=== PATIENT | male | born 1940 | race Caucasian/White ===

== ENCOUNTER 2016-11-12 09:40 | Inpatient (IN) ==
[2016-11-12 10:03] LABS: ALLEN TEST YES; BE 0.5 mmoll (-3.0-3.0); BLOOD TYPE ARTERIAL; DRAW SITE R RADIAL; METHB 1.4 % (0.0-1.5); O2(CT) 19.8 mL/dL (15.0-23.0); PCO2(98.6) 44 mmHg (35-45); PO2(98.6) 69 mmHg (60-100); SAMPLE BLOOD; SAO2 96.4 % (95.0-100.0); THB 15.2 g/dL (11.5-17.4); pH(98.6) 7.38 (7.35-7.45)
[2016-11-12 10:04] LABS: MODALITY ROOM AIR
[2016-11-12 10:41] LABS: MANUAL DIFF NEEDED? NO
[2016-11-12 10:41] LABS: URINE CULTURE NEEDED? NO; URINE MICRO REVIEW NEEDED? NO; URINE SOURCE CLEAN CATCH
[2016-11-12 10:48] LABS: BASO% 0.6 % (0.0-0.8); EOS# 0.13 X1000 (0.0-0.7); EOS% 2.1 % (0.0-10.0); HEMATOCRIT 46.2 % (42.0-52.0); HEMOGLOBIN 15.5 g/dL (14.0-18.0); IMM GRAN# 0.04 X1000 (0.0-0.04); IMM GRAN% 0.6 % (0.0-0.5); LYMPH# 1.06 X1000 (1.2-3.4); MCH 30.6 PG (27-31); MCHC 33.5 g/dL (33-37); MCV 91.3 FL (81-99); MONO# 0.77 X1000 (0.11-0.59); MONO% 12.4 % (1.7-9.3); MPV 10.2 FL (7.4-10.4); NEUT% 67.3 % (42.2-75.2); PLT 300 X1000 (130-400); RBC 5.06 XMIL (4.7-6.1)
[2016-11-12 10:53] LABS: BILIRUBIN URINE NEGATIVE (NEGATIVE); BLOOD URINE NEGATIVE (NEGATIVE); COLOR YELLOW; GLUCOSE URINE NEGATIVE (NEGATIVE); LEUKOCYTES URINE NEGATIVE (NEGATIVE); NITRITE URINE NEGATIVE (NEGATIVE); PH URINE 5.5; PROTEIN URINE NEGATIVE (NEGATIVE); SP GRAVITY URINE 1.003; TURBIDITY URINE CLEAR (CLEAR); UROBILINOGEN URINE NORMAL (NORMAL)
[2016-11-12 10:54] LABS: INR 1.04; PROTIME 10.9 Seconds (9.2-11.7); PTT 30.2 Seconds (22.0-36.0)
[2016-11-12 10:54] LABS: UR AMPHETAMINES QUAL NONE DETECTED (NONE DETECT); UR BARBITUATES QUAL NONE DETECTED (NONE DETECT); UR BENZODIAZEPIN QUAL NONE DETECTED (NONE DETECT); UR CANNABINOIDS QUAL NONE DETECTED (NONE DETECT); UR COCAINE QUAL NONE DETECTED (NONE DETECT); UR METHADONE QUAL NONE DETECTED (NONE DETECT); UR OPIATES QUAL NONE DETECTED (NONE DETECT); UR OXYCODONE QUAL NONE DETECTED (NONE DETECT); UR PCP QUAL NONE DETECTED (NONE DETECT)
[2016-11-12 10:58] LABS: UR EPITHELIAL CELLS <10 /HPF (<10); URINE BACTERIA NEGATIVE /HPF; URINE RBC <10 /HPF (<10); URINE WBC <10 /HPF (<10)
--- NOTE | 2016-11-12 11:08 | Diag Imaging Result Document ---
PROCEDURE NAME: CHEST-PORTABLE - 11/12/2016 PORTABLE CHEST X-RAY, 11/12/2016: COMPARISON: 09/09/2015. FINDINGS: Stable sternotomy wires. Stable cardiomegaly and mild pulmonary vascular congestion. There is stable chronic left lower lobe atelectasis or infiltrate. No new or focal infiltrates. No significant edema. IMPRESSION: Nonspecific findings.
[2016-11-12 11:09] LABS: AGAP 14; ALBUMIN 4.2 g/dL (3.5-5.0); ALKALINE PHOSPHATASE 48 U/L (32-122); BUN 11 mg/dL (8-22); CALCIUM 9.3 mg/dL (8.8-10.2); CHLORIDE 95 mmol/L (98-107); CK PROFILE 68 U/L (24-204); COSMO 274; GOT 18 U/L (10-34); GPT 15 U/L (10-44); POTASSIUM 4.1 mmol/L (3.5-5.1); SODIUM 136 mmol/L (136-145); TCO2 27 mmol/L (25-35); TOTAL BILIRUBIN 0.51 mg/dL (0.20-1.00); TOTAL PROTEIN 7.1 g/dL (6.3-8.3)
--- NOTE | 2016-11-12 11:20 | Diag Imaging Result Document ---
PROCEDURE NAME: HEAD W/O CONTRAST - 11/12/[address], 11/12/2016: A CT dose reduction protocol was used. COMPARISON: 09/09/2015. FINDINGS: There are new, extensive hypodensities in the left frontal and occipital lobes. The density does not quite approach CSF density, this probably indicates infarctions of at least several days of age. No mass effect or significant atrophy yet. No intracranial hemorrhage. The skull is intact. The sinuses, mastoids, and middle ears are grossly clear. There is stable advanced cerebral white matter hypodensity compatible with chronic microvascular disease. IMPRESSION: New extensive left cerebral hemisphere hypodensities compatible with strokes. These are probably at least 3-5 days old, but probably less than a month old. [facility]
--- NOTE | 2016-11-12 11:41 | PROVIDER DOCUMENTATION ---
This chart was entered by Chasidy Gee Scribe, acting as scribe for Charlee Schneider Jr, MD. HPI-General Adult - General Stated Complaint: AMS x 4 days Time Seen by Provider: 11/12/16 09:41 Source: patient Unable to obtain history due to:: altered Allergies/Adverse Reactions: Patient Allergies Allergy/AdvReac Type Severity Reaction Status Date / Time No Known Allergies Allergy Verified 11/12/16 11:08 Home Medications: Home Medication List Medication Instructions Recorded Confirmed Last Taken Type LISINOpril [Prinivil] 2.5 mg PO DAILY 08/27/15 11/12/16 05/27/16 09:00 History Metformin E.r. [Glucophage Xr] 1,000 mg PO DAILY 08/27/15 11/12/16 05/27/16 09: 00 History Tamsulosin [Flomax] 0.4 mg PO DAILY 08/27/15 11/12/16 05/27/16 09:00 History Clopidogrel Bisulfate [Plavix] 75 mg PO DAILY 05/26/16 11/12/16 05/27/16 09:00 History Potassium 1 tab PO DAILY 11/12/16 11/12/16 Unknown History - History of Present Illness -Gen Adult Nature of Presenting Problems: 76 y/o M presents to ED per EMS cc of AMS X 4 days now. Pt is disoriented x 3. is at bedside and reports pt being confused, not talking , and incoherent since Wednesday. Pt does have a hx of dementia. also reports pt having a cough and rash/sores between thighs/groin area due to incontinence and the use of depends. reports pt smoking x 1 ppd and reports that pt use to be an alcoholic. On exam pt appears to be SOB with increased rate but reports this as normal for pt. Location of Pain/Injury: reports: none Pain Radiation: reports: no radiation Quality of Pain: reports: none Severity: reports: mild Onset/Duration: reports: 4 days ago (wednesday) Timing: reports: still present Context/Activities at Onset: reports: light activity Modifying Factors: improves with: nothing Associated Symptoms: reports: cough, rash (between thighs/ groin area), other ( AMS). denies: chest pain, fever/chills, sinus congestion/drainage, shortness of breath ( reports pt always breathes this way) Similar Symptoms Previously?: No Recently seen or treated by another doctor?: No Review of Systems - Adult - REVIEW OF SYSTEMS - ADULT ROS:: ROS per family Constitutional: denies: chills, fever Cardiovascular: denies: chest pain, palpitations Respiratory: reports: cough. denies: shortness of breath Gastrointestinal: denies: abdominal pain, diarrhea, nausea, vomiting Genitourinary: reports: incontinence. denies: discharge Musculoskeletal: denies: bone pain, back pain Integumentary: reports: rash (groin area/between thighs). denies: mole changes Neurological: denies: dizziness/vertigo, headache/migraines Past History - Adult - PAST MEDICAL HISTORY-ADULT Review of Records: reports: Old Records Reviewed, Nursing Assessment Review Cardiovascular: reports: CAD, HTN, hyperlipidemia, PA Respiratory: reports: COPD Gastrointestinal: reports: pancreatitis Genitourinary: reports: other (bladder ca, BPH) Endocrine/Immune: reports: Diabetes - PRIOR SURGERIES/PROCEDURES Surgical/Procedure History: reports: CABG, other (urinary stents) - IMMUNIZATION STATUS Childhood Immunizations: See Nurse Assessment Flu Vaccine: See Nurse Assessment - SOCIAL HISTORY Smoking: greater than 1 pack/day Provider spent 3-5 mins advising pt. on dangers of tobacco.: Discussed manners to quit use, and f/u contacts for add'l counseling. Substance Use: none presently/history of abuse Alcohol Use Frequency: sober (former use) Living Situation: family Physical Exam-General - PHYSICAL EXAM-ADULT Initial Vital Signs Reviewed: Yes - CONSTITUTIONAL General Appearance: alert, obese, other (DISORIENTED) - EYES Eyes: pink conjunctivae, other (discharge to R eye) - HEAD, EARS, NOSE, MOUTH & THROAT HENMT: moist mucous membranes, other (no teeth) - NECK Neck: non-tender, full range of motion - RESPIRATORY Respiratory: chest non-tender, no respiratory distress, wheezing (all lung jones), increased rate. negative: lungs clear - CARDIOVASCULAR Cardiovascular: normal peripheral pulses, regular rate, rhythm, no edema - GASTROINTESTINAL (ABDOMEN) Abdominal Exam: normal bowel sounds, soft - MUSCULOSKELETAL Back Exam: no CVA tenderness, no vertebral tenderness Extremity: normal range of motion, non-tender - SKIN Integumentary: warm/dry, erythema (bilat groin region), rash (bilat groin region ), other (yeast is noted to bilat groin regions/ pt does have some mild skin break down). negative: decubitus - NEUROLOGIC Neurologic: no motor/sensory deficits, other (disoriented). negative: facial droop, focal weakness - PSYCHIATRIC Psych/Mental Status: disoriented x 3, other (confused) Progress - PLAN OF CARE/RESULTS Progress/Plan/Lab Results: Orders Category Date Time Status Cardiac Monitoring DIRECTED Care 11/12/16 09:42 Active Finger Stick Blood Sugar (ED) DIRECTED Care 11/12/16 09:42 Active Oxygen Therapy- ED Nursing DIRECTED Care 11/12/16 09:42 Active Saline Loc NOW Care 11/12/16 09:42 Active CHEST-PORTABLE [RAD] Stat Exams 11/12/16 09:42 Ordered HEAD W/O CONTRAST [CT] Stat Exams 11/12/16 09:43 Ordered ABG [RESP] Routine Lab 11/12/16 09:42 Ordered ALCOHOL BLOOD Stat Lab 11/12/16 09:42 Uncollected CBC WITH ELECTRONIC DIFF [HEME] Stat Lab 11/12/16 09:42 Uncollected CK PROFILE [SP CHEM] Stat Lab 11/12/16 09:42 Uncollected COMPREHENSIVE METABOLIC PANEL [CHEM] Stat Lab 11/12/16 09:42 Uncollected LACTATE, PLASMA [CHEM] Stat Lab 11/12/16 09:42 Uncollected PROTIME WITH INR [COAG] Stat Lab 11/12/16 09:42 Uncollected PTT [COAG] Stat Lab 11/12/16 09:42 Uncollected TROPONIN T Stat Lab 11/12/16 09:42 Uncollected URINALYSIS W/POSS RFLX CULT-1 [URINALYSIS] Stat Lab 11/12/16 09:42 Uncollected URINE DRUG SCREEN Stat Lab 11/12/16 09:42 Uncollected Pulse Oximetry Stat Oth 11/12/16 09:42 Active EKG [EKG] Stat Ther 11/12/16 09:42 Ordered PLAN: LABS, URINE(WERNER) ,CHEST XRAY , HEAD CT, EKG PT IS AT BED SIDE AND VERBALLY UNDERSTANDS THE PLAN OF CARE. Result Diagrams: 11/12/16 10:08 11/12/16 10:08 - REASSESSMENT Reassessment #1 Time Reassessed: 11:03 Status: unchanged Reassessment Comment: notified of CT results. Reassessment #2 Time Reassessed: 11:30 Status: unchanged Reassessment Comment: notified of pt being admitted - EKG 1 Time of EKG reading by physician:: 11:09 EKG Read and Signed by:: Charlee Schneider Jr EKG Interpretation (*Must complete 3 of following elements*): Abnormal Rate: 60 Rhythm: NSR Chambers: normal QRS: RBB VA Interval: normal Comments: inferior infarct , possible lateral infarct - XRAY 1 XRAY: Bilateral XRAY Study: Chest Impression: Normal XRAY Interpretation: CMG, no edema - Dr. Andrews ( radiologist) - CT/MRI 1 CT Study: Head Impression: Abnormal (subacute to chronic L sided strokes (probably 1-2 weeks old) / no bleed or mass - (radiologist)) CT Results: see impression - CONSULTS/PCP/HOSPITALIST Notification #1 *Consult/PCP/Hospitalist*: (hospitalist) Time Discussed: :30 Consult Disposition: Admit Departure - Departure Time of Disposition Decision: 11:25 DIAGNOSIS: Yeast dermatitis, COPD exacerbation, Tobacco abuse CVA (cerebral vascular accident) Qualifiers: CVA mechanism: unspecified Qualified Code(s): I63.9 - Cerebral infarction, unspecified Disposition: ADMITTED INPATIENT 09 Certified Medical Emergency: Emergent Condition: Stable Referrals and Follow-Ups: Verna Painter MD [Primary Care Provider] - This chart was documented by the indicated scribe, (Chasidy Gee Scribe) and accurately reflects the services I performed and decisions made by , Charlee Schneider Jr, MD, as attested by the provider's signature.
--- NOTE | 2016-11-12 12:02 | EKG Report ---
Test Performed on : 11/12/2016 11:09:40 AM Test Reason : AMS Blood Pressure : / mmHG Vent. Rate : 060 BPM Atrial Rate : 060 BPM P-R Int : 146 ms QRS Dur : 140 ms QT Int : 466 ms P-R-T Axes : 061 021 154 degrees QTc Int : 466 ms Normal sinus rhythm. Right bundle branch block Possible Lateral infarct , age undetermined Inferior infarct (cited on or before 24-MAY-2007) Abnormal ECG When compared with ECG of 26-MAY-2016 14:27, T wave inversion less evident in Anterior leads Unconfirmed Result
[2016-11-12] MEDS ORDERED: ASPIRIN PR ONE (12:12)
[2016-11-12] MEDS ORDERED: DUONEB (A & A) INH PRN (12:12)
[2016-11-12] MEDS ORDERED: LOTRIMIN 1% CREAM TOP ONE (12:50)
[2016-11-12 13:43] LABS: HEMOGLOBIN A1C 6.3 % (4.8-6.0)
[2016-11-12 13:51] LABS: FREE T4 1.17 ng/dL (0.93-1.70)
--- NOTE | 2016-11-12 14:45 | Diag Imaging Result Document ---
PROCEDURE NAME: MRI BRAIN W/O CONTRAST - 11/12/2016 MRI BRAIN: COMPARISON: Head CT earlier, 11/12/2016. FINDINGS: There is extensive patient motion artifact. There is restricted diffusion in the lateral left frontal-temporal lobe infarction. No mass effect. Given the appearance on the CT and other MRI sequences, this is compatible with a somewhat recent infarction that is subacute, probably about 3-7-day-old. No intracranial mass effect or hemorrhage. There is advanced periventricular white matter chronic microvascular disease. There is mild diffuse atrophy. There is an older infarct at the left occipital lobe that demonstrates no restricted diffusion. IMPRESSION: 1. Subacute left frontal-temporal lobe infarction, compatible with about 4 days of age. 2. Other advanced chronic changes of the brain.
--- NOTE | 2016-11-12 14:50 | Diag Imaging Result Document ---
PROCEDURE NAME: MRA BRAIN W/O CONTRAST - 11/12/2016 MR ANGIOGRAM OF THE HEAD: COMPARISON: None. FINDINGS: Noncontrast time of flight technique was used. There is severe patient motion artifact distorting the exam. There is probably relatively severe narrowing of the left internal carotid artery in the cavernous portion. This appears to be about 80%-90% narrowed. The right side appears grossly patent. The vertebrobasilar system appears to be patent. No evidence of aneurysm. IMPRESSION: Severe stenosis of the cavernous portion of the left internal carotid artery.
--- NOTE | 2016-11-12 14:54 | Diag Imaging Result Document ---
PROCEDURE NAME: MRA NECK W/O CONT - 11/12/2016 MR ANGIOGRAM OF THE NECK: FINDINGS: Noncontrast time of flight technique was used. There is severe patient motion artifact. There is severe stenosis of the distal left common carotid artery and the carotid bulb. There is probably about 75% narrowing here. The internal carotid artery is patent. The right- sided carotid artery system is patent. The vertebral arteries are patent. IMPRESSION: Severe stenosis of the left common carotid artery and carotid artery bifurcation.
--- NOTE | 2016-11-12 15:40 | HISTORY AND PHYSICAL ---
PRIMARY CARE PHYSICIAN: Verna Painter MD. CHIEF COMPLAINT: Altered mental status. HISTORY OF PRESENT ILLNESS: Mr. Hamm is a 76-year-old, male with a history of alcoholic dementia, previous CVA, diabetes mellitus, hypertension, CAD and COPD , who presents with 4 days of worsening mental status. Patient is unable to give any type of history at this time given his mental status. Family is at the bedside, able to answer detailed questions. Starting on Wednesday, the patient became more nonverbal and less mobile. This waxed and waned over the next 3 days. He would have periods of extreme confusion with immobility and urinary and bowel incontinence. Last night, the patient would not eat and he became more confused. This morning, they called his PCP, who instructed him to come directly to the ER. In the ER, the patient had a head CT done. It showed new extensive left cerebral hemisphere hypodensities compatible with strokes. These are probably at least 3-5 days old, but probably less than a month old. His laboratory data is unremarkable. On physical exam, the patient is dysphasic, and he had some mild right-sided weakness. His vital signs are stable. He is now going to be admitted for acute CVA. PAST MEDICAL HISTORY: 1. Previous right-sided stroke. 2. Alcoholic dementia. 3. Hypertension. 4. Diabetes mellitus. 5. COPD on home O2 at night. 6. Hyperlipidemia. 7. CAD. 8. Urinary and bowel incontinence. 9. Nicotine dependence. 10. 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 SURGICAL HISTORY: CABG and PCI, cystoscopy. SOCIAL HISTORY: Patient smokes 2-3 cigarettes a day. He has a remote history of long-standing alcohol dependence, but he no longer drinks alcohol. He is . His is at the bedside. There is no history of drug use. REVIEW OF SYSTEMS: Unable to be obtained. ALLERGIES: No known drug allergies. HOME MEDICATIONS: Plavix 75 mg daily. Prinivil 2.5 mg daily, Glucophage XR 1000 mg daily, potassium 99 mg daily. Flomax 0.4 mg daily. PHYSICAL EXAMINATION: VITAL SIGNS: Blood pressure is 161/70, heart rate is 64, respiratory rate is 25 , O2 saturation 94% on room air. Temperature is 99.5. GENERAL: This is an overweight, male. He appears older than stated age. NEUROLOGIC: The patient is awake, he is essentially nonverbal. He will answer questions, but orientation questions are answered correctly for the most part, he does know his name, but that is about it. He follows commands with very mild, right-sided weakness. HEENT: Head is atraumatic and normocephalic. His pupils are equal, round, and reactive to light. His oral mucosa is moist. His trachea is midline. CHEST: Coarse bilaterally with occasional wheezes. CV: Joe, but regular. S1-S2 is noted. GI: Soft, nondistended. Bowel sounds positive. EXTREMITIES: Trace edema, diminished pulses. DIAGNOSTIC DATA: Head CT shows extensive left cerebral hemisphere hyperdensities, compatible with strokes. Chest x-ray stable cardiomegaly with mild pulmonary vascular congestion. There is stable chronic left lower lobe atelectasis or infiltrate. No new or focal infiltrates. No significant edema. EKG: Normal sinus rhythm with a right bundle branch block and diffuse nonspecific ST and T abnormalities. Q-waves are noted in the inferior leads. WBC 6.23, hemoglobin 15.5, hematocrit 46.2, platelet count 300. INR 1.04. ABG on room air: pH 7.38, pO2 44, O2 of 69, bicarb 25.2, lactate 2.3. Sodium 136, potassium 4.1, chloride 95, CO2 of 27, anion gap 14. BUN 11, creatinine 0.8, glucose 153. LFTs within normal limits. Troponin negative. UA is negative. Drug screen and alcohol level is negative. ASSESSMENT AND PLAN: 1. Acute left cerebral hemisphere cerebrovascular accident: Does appear to be embolic in nature given the scattered hypodensities. We are going to admit the patient with a full stroke workup. We are going to check MRI and MRA of the head and neck, and echocardiogram. We are going to order a Neuro consult, continue neurologic checks, light IV fluid hydration and allowing permissive hypertension. We will need speech therapy, physical therapy and social work. 2. Chronic obstructive pulmonary disease exacerbation: We will place the patient on IV steroids, antibiotics, breathing treatments and aggressive pulmonary toilet. 3. Diabetes mellitus: Will check hemoglobin A1c. Add pattern sugars and sliding scale insulin. 4. Hypertension: We are allowing for permissive hypertension at this time so we will not add any antihypertensives unless his blood pressure goes above 220 systolic. 5. Hyperlipidemia: Patient will need to be on high intensity statin. We will check a lipid panel in the morning. 6. Coronary disease. There is no evidence of acute coronary syndrome at this time, but we are going to trend his enzymes and check an echocardiogram. P.o. aspirin has been added as well. We will monitor telemetry. 7. Nicotine dependence: We have advised the patient and his family of the dangers of him continuing to smoke. We will write a nicotine patch for any withdrawal symptoms. Continue daily cessation education. 8. Deep vein thrombosis prophylaxis will be provided with sequential compression devices and TEDS. DISCHARGE PLANNING: Patient will likely need rehab and long-term care. Social work has been consulted. Further recommendations to follow. Dictated by LISA Roberto for Doreen Wong MD cc: LISA Roberto MD Kathy J. Sparacino, MD The patient was seen and examined by me. I agree with the assessment and plan as dictated. JOEL
[2016-11-12] MEDS: NS 1,000 ML IV SCH (15:53)
[2016-11-12] MEDS: SOLU-MEDROL IV SCH ×2 (15:53→21:58)
[2016-11-12] MEDS: ROCEPHIN 1 GM/NS 1 GM/50 ML IVPB IV SCH (15:53)
[2016-11-12] MEDS: PLAVIX PO SCH (15:54)
[2016-11-12] MEDS: HUMALOG SUBQ SCH ×2 (15:59→21:43)
[2016-11-12] MEDS: DUONEB (A & A) INH SCH ×3 (16:07→22:59)
[2016-11-12] MEDS: ZITHROMAX 500 MG/NS 500 MG/250 ML IVPB IV SCH (16:30)
[2016-11-12] MEDS: MUCOMYST 20% INH SCH (19:40)
[2016-11-13] MEDS: DUONEB (A & A) INH SCH ×6 (03:54→23:06)
[2016-11-13] MEDS: NS 1,000 ML IV SCH ×3 (05:17→14:19)
[2016-11-13] MEDS: SOLU-MEDROL IV SCH ×3 (05:19→22:24)
[2016-11-13] MEDS: HUMALOG SUBQ SCH ×2 (06:32→11:02)
[2016-11-13 07:19] LABS: HEMATOCRIT 45.1 % (42.0-52.0); HEMOGLOBIN 14.8 g/dL (14.0-18.0); MCH 29.8 PG (27-31); MCHC 32.8 g/dL (33-37); MCV 90.7 FL (81-99); RBC 4.97 XMIL (4.7-6.1)
[2016-11-13 07:40] LABS: AGAP 14; BUN 12 mg/dL (8-22); CALCIUM 8.9 mg/dL (8.8-10.2); CHLORIDE 100 mmol/L (98-107); COSMO 283; POTASSIUM 3.9 mmol/L (3.5-5.1); SODIUM 139 mmol/L (136-145); TCO2 25 mmol/L (25-35)
[2016-11-13] MEDS: MUCOMYST 20% INH SCH ×2 (07:54→19:38)
[2016-11-13] MEDS: PLAVIX PO SCH (09:57)
[2016-11-13] MEDS: ASPIRIN EC PO SCH (10:40)
[2016-11-13] MEDS: ROCEPHIN 1 GM/NS 1 GM/50 ML IVPB IV SCH (11:28)
[2016-11-13] MEDS: VITAMIN B-12 SL SCH (11:48)
[2016-11-13] MEDS: ZITHROMAX 500 MG/NS 500 MG/250 ML IVPB IV SCH (12:13)
--- NOTE | 2016-11-13 13:05 | PROGRESS NOTE ---
DATE: 11/13/2016 SUBJECTIVE: The patient is resting comfortably in bed. He is more awake and alert today. He states that his breathing is better. He is able to move all 4 extremities. OBJECTIVE: Vital Signs: Temperature 98.7 degrees, blood pressure 127/71, heart rate 81, respirations 34, O2 saturations 93% on 2 L nasal cannula. General: This is a chronically ill- appearing, elderly male, sitting up in bed, in no acute distress. Head: Normocephalic atraumatic. Heart: S1, S2. Normal. Regular rate and rhythm. Lungs: Coarse breath sounds bilaterally. Mild expiratory wheezes. Abdomen: Positive bowel sounds. Soft, nontender, nondistended. Extremities: No edema. No cyanosis. Neurologic: The patient is alert and oriented x3. Strength 5/5 in the lower extremities. LABS: Reviewed. ASSESSMENT AND PLAN: 1. 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 The case was discussed with Dr. Quach. We will continue on Plavix. We will add low-dose aspirin and pravastatin. Continue with physical therapy as well as speech therapy. 2. Left carotid artery stenosis. Aware. This was discussed with Dr. Quach and we will just continue to monitor the patient closely. 3. Diabetes mellitus type 2. We will continue on sliding scale insulin coverage. The patient is on metformin as outpatient. We are holding this medication. 4. Benign prostatic hypertrophy. Continue on Flomax. 5. Morbid obesity. Aware. 6. Vitamin B12 deficiency. We will start the patient on vitamin B12 replacement. 7. Disposition. The patient may require rehab placement. We will consult case management for assistance with this. cc: Doreen Wong MD
--- NOTE | 2016-11-13 15:02 | CONSULTATION ---
DATE OF CONSULTATION: 11/13/2016 Mr. Hamm is 76 years old and there is imaging evidence of subacute dominant left hemisphere infarction. History from the patient is considered not valid because of his baseline cognitive impairment, and also current dysphasia. History from his attentive at the bedside is that he abruptly seemed unable to communicate with speech approximately a week ago. That has been about the same since onset, by her report. He has chronic difficulty using the right hand attributed to previous stroke. reports that was not any worse than baseline in the last week. He did not have any new gait difficulty. There was never unconsciousness, altered awareness, complaint of headache. Workup here includes initial noncontrast CT of the head showing left-sided infarctions. Brain MRI showed evidence of subacute left frontal infarction. Brain MRA showed intracranial stenosis in the left internal carotid. Cervical MRA showed significant stenosis in the left common carotid. Lab work included drug screen all negative. Systolic blood pressures have ranged 160s to 130s. He has been afebrile. On exam, he is awake, alert, attentive. He answered questions appropriately but often incorrectly. He had trouble finding words. He could name objects but had trouble naming parts of objects. He had trouble following commands which required right/left distinction and digit distinction. Visual field is full tested very grossly by confrontational finger counting. Facial motility is symmetric. Gag is intact. Tongue is midline. He can hear. I can overcome the right deltoid grading 4/5. Tone is little bit increased in the right limbs but that is inconsistent. He did well on [id number] testing bilaterally. His responses on pinprick testing are equivocal, apparent significant language dysfunction interfering with ability to test sensation carefully. He did report ability to feel pinprick over all limbs. I did not test his gait. IMPRESSION: Imaging evidence of acute dominant left hemisphere infarction occurring about a week ago by history. He has had a stable course. There is evidence of left carotid stenosis in the neck and intracranially. In light of his stable course and lack of occlusion and report that this deficit has been stable for a week, I do not think he is a candidate for urgent intervention. We can continue treating him with fluids, clopidogrel, aggressive management of blood sugar. Although lipid profile is not very remarkable, I think it would be reasonable to consider adding a statin drug for potential endothelial benefit, if he has not tried and not tolerated statin in the past. We could consider adding aspirin to clopidogrel. Further plans will depend on his clinical course. Thanks for asking me to see Mr. Hamm. cc: MD JOEL Yu III
[2016-11-13] MEDS: HUMULIN R SUBQ SCH ×2 (16:24→22:24)
[2016-11-13] MEDS: PRAVACHOL PO SCH (22:24)
[2016-11-14] MEDS: DUONEB (A & A) INH SCH ×6 (04:05→22:39)
[2016-11-14] MEDS: SOLU-MEDROL IV SCH (04:45)
[2016-11-14] MEDS: HUMULIN R SUBQ SCH ×4 (06:30→21:43)
[2016-11-14 07:33] LABS: HEMATOCRIT 44.3 % (42.0-52.0); HEMOGLOBIN 14.4 g/dL (14.0-18.0); MCH 30.5 PG (27-31); MCHC 32.5 g/dL (33-37); MCV 93.9 FL (81-99); MPV 10.4 FL (7.4-10.4); RBC 4.72 XMIL (4.7-6.1)
[2016-11-14 07:57] LABS: AGAP 13; BUN 17 mg/dL (8-22); CALCIUM 8.9 mg/dL (8.8-10.2); CHLORIDE 103 mmol/L (98-107); COSMO 292; POTASSIUM 4.8 mmol/L (3.5-5.1); SODIUM 144 mmol/L (136-145); TCO2 28 mmol/L (25-35)
[2016-11-14] MEDS: MUCOMYST 20% INH SCH ×2 (08:41→19:11)
[2016-11-14] MEDS: GLUCOPHAGE XR PO SCH (09:31)
[2016-11-14] MEDS: PLAVIX PO SCH (09:31)
[2016-11-14] MEDS: VITAMIN B-12 SL SCH (09:31)
[2016-11-14] MEDS: ASPIRIN EC PO SCH (09:31)
[2016-11-14] MEDS ORDERED: LACTULOSE PO ONE (14:30)
--- NOTE | 2016-11-14 15:17 | Carotid Study ---
DATE: 11/12/2016 PROCEDURE: Carotid imaging study. REFERRING PHYSICIAN: Doreen Wong MD INTERPRETING PHYSICIAN: Carlos Schuler MD DESIGN PRINTER [place]: [place] INDICATIONS: The patient has altered mental status and cerebrovascular accident. OBSERVED DATA RIGHT LEFT Brachial Blood Pressure Carotid Pulse Bruits: Carotid/Sub DIAGRAM OF ULTRASOUND IMAGING R L RIGHT INT EXT INT EXT LEFT Alvaro (cm/s) Alvaro (cm/s) Subclavian 106/0 Subclavian 149/0 CCA Proximal 78/15 CCA Proximal 71/9 CCA Distal 89/10 CCA Distal 94/15 Bulb 86/16 Bulb 173/33 ICA Proximal 57/9 ICA Proximal 212/35 ICA Mid 70/15 ICA Mid 78/17 ICA Distal 58/13 ICA Distal 48/13 ECA 111/11 ECA 175/25 Vertebral A, 34/10 Vertebral A, 51/8 ICA/CCA Ratio 0.65 ICA/CCA Ratio 2.2 % Stenosis 0 to 39% % Stenosis 60 to 79% FINDINGS: There is irregular calcific plaque along the course of both common carotids. There is significant disease at the takeoff of the left internal. INTERPRETATION: Irregular calcific plaque in both carotids extending to the bulbs. There is an extra amount of calcific plaque at the takeoff of the left internal. It does produce a stenosis of hemodynamic consequence. There is antegrade vertebral flow bilaterally. This study has worsened compared to the study of 09/17/2015. cc: MD Doreen Ramos MD
[2016-11-14] MEDS: ROCEPHIN 1 GM/NS 1 GM/50 ML IVPB IV SCH (15:36)
[2016-11-14] MEDS: ZITHROMAX 500 MG/NS 500 MG/250 ML IVPB IV SCH (15:36)
[2016-11-14] MEDS: PRAVACHOL PO SCH (20:41)
[2016-11-14] MEDS: MIRALAX PO SCH (20:41)
[2016-11-14] MEDS: DULCOLAX PR SCH (20:42)
[2016-11-14] MEDS: NS 1,000 ML IV SCH (23:02)
[2016-11-15] MEDS: DUONEB (A & A) INH SCH ×6 (03:54→23:50)
[2016-11-15] MEDS: HUMULIN R SUBQ SCH ×4 (06:03→22:15)
[2016-11-15 07:37] LABS: HEMATOCRIT 42.5 % (42.0-52.0); HEMOGLOBIN 13.5 g/dL (14.0-18.0); MCH 30.1 PG (27-31); MCHC 31.8 g/dL (33-37); MCV 94.9 FL (81-99); MPV 10.1 FL (7.4-10.4); RBC 4.48 XMIL (4.7-6.1)
[2016-11-15] MEDS: ASPIRIN EC PO SCH ×2 (07:52→08:22)
[2016-11-15] MEDS: PLAVIX PO SCH ×2 (07:52→08:22)
[2016-11-15] MEDS: MIRALAX PO SCH ×3 (07:52→22:14)
[2016-11-15] MEDS: GLUCOPHAGE XR PO SCH ×2 (07:52→08:22)
[2016-11-15] MEDS: MUCOMYST 20% INH SCH ×2 (08:00→19:25)
[2016-11-15] MEDS ORDERED: SOLU-MEDROL IV SCH (08:00)
[2016-11-15 08:04] LABS: AGAP 12; BUN 16 mg/dL (8-22); CALCIUM 8.3 mg/dL (8.8-10.2); CHLORIDE 105 mmol/L (98-107); COSMO 291; POTASSIUM 3.8 mmol/L (3.5-5.1); SODIUM 145 mmol/L (136-145); TCO2 28 mmol/L (25-35)
[2016-11-15] MEDS: VITAMIN B-12 SL SCH (08:22)
[2016-11-15] MEDS: PREDNISONE PO SCH (08:22)
[2016-11-15] MEDS ORDERED: LASIX IV ONE (10:13)
[2016-11-15] MEDS ORDERED: LASIX ONE (10:24)
--- NOTE | 2016-11-15 12:08 | PROGRESS NOTE ---
DATE: 11/14/2016 SUBJECTIVE: The patient is resting comfortably in bed. He says that he did not sleep well last night. He also complains of constipation. OBJECTIVE: Vital: Temperature 97.9 degrees, blood pressure 159/76, heart rate 85 Respirations 18. O2 saturations 96% on 2 L nasal cannula. General: This is a morbidly obese male, lying in bed, in no acute distress. Head: Normocephalic, atraumatic. Heart: S1, S2 normal, regular rate and rhythm. Lungs: Clear to auscultation bilaterally. No wheezes, no rales. No rhonchi. Abdomen: Positive bowel sounds, soft, nontender, nondistended. Extremities: No edema. No cyanosis. Neurologic: The patient is alert and oriented x3. LABS: White blood cell count 20, hemoglobin 14, hematocrit 44, Sodium 144, potassium 4.8 ASSESSMENT AND PLAN: 1. 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 Continue on Plavix and low dose aspirin Continue with physical therapy and speech therapy. 2. Left carotid artery stenosis. Aware. 3. Leukocytosis. This is most likely steroid induced. We will decrease the patient's IV steroids. 4. Acute chronic obstructive pulmonary disease exacerbation. Improved. Will wean the steroid, continue on bronchodilator therapy and antibiotic therapy. 5. Diabetes mellitus type 2. Continue on metformin. 6. Benign prostatic hypertrophy. Continue on Flomax. 7. Constipation. Will start the patient on scheduled laxatives. 8. Vitamin B12 deficiency. Continue on vitamin B12 replacement. 9. Disposition. We will consult home health care social worker for assistance with rehab placement for the patient. 10. Continue with physical therapy. cc: Doreen Wong MD [facility]
[2016-11-15] MEDS: ROCEPHIN 1 GM/NS 1 GM/50 ML IVPB IV SCH (12:45)
--- NOTE | 2016-11-15 13:17 | Diag Imaging Result Document ---
PROCEDURE NAME: CHEST-PORTABLE - 11/15/2016 PORTABLE CHEST: COMPARISON: Compared to 11/19/2016. FINDINGS: The lungs are well expanded. Sternal wires are present. The right hemidiaphragm is elevated. The heart remains enlarged. There is atelectasis in the right base. Mild vascular prominence. IMPRESSION: Development of right basilar atelectasis versus a small infiltrate.
[2016-11-15] MEDS: LEVAQUIN 750 MG in NS 150 ML IV SCH (15:01)
--- NOTE | 2016-11-15 15:10 | PROGRESS NOTE ---
DATE: 11/15/2016 SUBJECTIVE: The patient was noted to be confused last night and early this morning. He is at this time only oriented to self. OBJECTIVE: Vital Signs: Temperature 99 degrees, blood pressure 117/76, heart rate 53, respirations 22, O2 saturations 98% on 2 L nasal cannula. General: This is a chronically ill- appearing elderly male lying in bed in no acute distress. Head: Normocephalic , atraumatic. Heart: S1, S2. Normal. Regular rate and rhythm. Lungs: Coarse breath sounds with crackles. Abdomen: Positive bowel sounds. Soft, nontender, nondistended. Extremities: No edema. No cyanosis. No calf tenderness. Neurologic: The patient is oriented to self only. He is able to move all 4 extremities and he is able to stand and walk. LABS: White blood cell count 16, hemoglobin 13, hematocrit 42, platelets 304, 000. Sodium 145, potassium 3.8, chloride 105, CO2 28, BUN 16, creatinine 0.7, glucose 121, magnesium 1.7, calcium 8.3. Chest x-ray shows right basilar atelectasis versus a small infiltrate. ASSESSMENT AND PLAN: 1. Pulmonary infiltrate. Will add Levaquin and continue on ceftriaxone. Continue on bronchodilator therapy. 2. Acute chronic obstructive pulmonary disease exacerbation. Continue on prednisone plus bronchodilator therapy and supplemental oxygen. 3. Acute cerebrovascular accident. Continue on aspirin plus Plavix and Pravachol. 4. Uncontrolled diabetes mellitus type 2. Continue on metformin plus sliding scale insulin. 5. Morbid obesity. Aware. 6. Dementia. Aware. 7. Vitamin B12 deficiency. Continue on vitamin b12 replacement. 8. Constipation. Continue on scheduled laxative therapy. 9. Severe left carotid artery stenosis. Will consult the general surgeon for further recommendations. 10. Disposition. The patient will most likely require inpatient rehab upon discharge. cc: Doreen Wong MD [facility]
--- NOTE | 2016-11-15 15:55 | Diag Imaging Result Document ---
PROCEDURE NAME: HEAD W/O CONTRAST - 11/15/2016 CT BRAIN WITHOUT CONTRAST: FINDINGS: Dose reduction protocol. Compared to 11/12/2016. No parenchymal hemorrhage. No epidural or subdural hematoma. No subarachnoid hemorrhage. There are prominent chronic microvascular ischemic changes. There are old left infarcts. No mass identified on this noncontrasted exam. Mild ventricular prominence similar to the prior study. IMPRESSION: 1. No hemorrhage. 2. Prominent microvascular ischemic changes with old left infarcts. A preliminary report was given at 3:14 PM.
[2016-11-15] MEDS: PRAVACHOL PO SCH (22:13)
[2016-11-15] MEDS: LOVENOX SUBQ SCH (22:14)
[2016-11-15] MEDS: DULCOLAX PR SCH ×2 (22:14→22:19)
[2016-11-16] MEDS: DUONEB (A & A) INH SCH ×6 (03:30→22:40)
--- NOTE | 2016-11-16 05:27 | EKG Report ---
Test Performed on : 11/15/2016 01:49:52 AM Test Reason : 3 beat run vtach Blood Pressure : / mmHG Vent. Rate : 071 BPM Atrial Rate : 071 BPM P-R Int : 130 ms QRS Dur : 146 ms QT Int : 396 ms P-R-T Axes : 056 057 161 degrees QTc Int : 430 ms Sinus rhythm. with occasional premature ventricular complexes. Right bundle branch block Inferior infarct (cited on or before 24-MAY-2007) T wave abnormality, consider lateral ischemia Abnormal ECG When compared with ECG of 12-NOV-2016 11:09, (Unconfirmed) premature ventricular complexes. are now present Nonspecific T wave abnormality, worse in Anterior leads Confirmed by Dayana GODOY, Justice Mclean ([id number]) on 11/16/2016 6:41:39 PM
[2016-11-16] MEDS: HUMULIN R SUBQ SCH ×4 (06:04→23:13)
--- NOTE | 2016-11-16 06:53 | CONSULTATION ---
DATE OF CONSULTATION: 11/16/2016 REQUESTING PHYSICIAN: Doreen Wong MD CONSULT CONCERNING: Left carotid stenosis, status post stroke. HISTORY OF PRESENT ILLNESS: A 76-year-old male with a history of alcoholic dementia, previous cerebrovascular accident, diabetes mellitus, hypertension, coronary artery disease, and chronic obstructive pulmonary disease, who initially presented to the hospital on 11/14/2016 with worsening mental status. During the workup, it was found that he did have a stroke and by CT scan it is noted to be left cerebral hemisphere. He had an extensive workup to find the origin of the stroke and has had a recent carotid study that showed potential stenosis in the range of 60-79%. He had previously been followup by my partner Dr. Garrison for this, and had been evaluated as an outpatient for his carotid stenosis. The patient still has some degree of residual neurologic defect with orientation and mental status. He is able to move all extremities. I was asked to evaluate and give an opinion for carotid disease. PAST MEDICAL HISTORY: 1. Previous right-sided stroke. 2. Alcohol dementia. 3. Hypertension. 4. Diabetes mellitus. 5. Chronic obstructive pulmonary disease. 6. Hyperlipidemia. 7. Coronary artery disease. 8. Urinary and bowel incontinence. 9. Nicotine dependence. 10. History of papillary transitional cell of the bladder. 11. Pancreatitis. PAST SURGICAL HISTORY: Includes coronary artery bypass, cystoscopy. PAST SURGICAL HISTORY: Also includes laparoscopic cholecystectomy. MEDICATIONS: MAR reviewed. Of note, the patient is on aspirin, Lovenox, and Plavix. He is also on Rocephin for pneumonia. ALLERGIES: None reported. SOCIAL: Smoker. Longstanding alcohol dependence. FAMILY HISTORY: Reviewed from notes. Patient unable to give further history. REVIEW OF SYSTEMS: Unable to obtain secondary to patient's mental status. PHYSICAL EXAMINATION: Vital Signs: The patient is currently afebrile. His vital signs have been stable. General: Resting comfortably. male, appears stated age. Oriented to person only. HEENT: Normocephalic, atraumatic. Pupils equal, round, reactive to light. Mucous membranes moist. Oropharynx benign. Neck: Supple. Trachea midline. Cardiovascular: Regular rate and rhythm. Lungs: Grossly clear. Abdomen: Soft, nontender, nondistended. Extremities: Moves all extremities. Neurologic: Is oriented to self only. Some confusion. He does move all extremities. His facial muscles appear to be intact and symmetric. Vascular: All extremities perfused. LABORATORY: From previous stays reviewed. His white blood cell count yesterday was 16. Ultrasound report from carotid study reviewed. Patient does have a reported stenosis on the ultrasound of 60-79%. Other imaging reviewed. ASSESSMENT/PLAN: A 76-year-old male with new stroke and left carotid disease and multiple medical comorbidities and acute pulmonary infiltrates. 1. Pulmonary infiltrates. At this time patient is on antibiotics. We will defer to the hospitalist service. 2. Multiple medical comorbidities, currently being managed by the hospitalist service. Will defer. 3. Acute stroke. At this time the potential for carotid disease origin is high. The patient is on aspirin and Plavix. Given the findings on ultrasound, the patient likely would benefit from surgical intervention but not urgently. Will allow patient to recover from current stroke and see patient as an outpatient. We will discuss this with Dr. Garrison, who is the primary surgeon following the patient. I appreciate the consult. cc: Crow Norris MD [facility]
[2016-11-16 07:08] LABS: MANUAL DIFF NEEDED? NO
[2016-11-16 07:16] LABS: BASO% 0.1 % (0.0-0.8); EOS# 0.01 X1000 (0.0-0.7); EOS% 0.1 % (0.0-10.0); HEMATOCRIT 41.7 % (42.0-52.0); HEMOGLOBIN 13.8 g/dL (14.0-18.0); IMM GRAN# 0.07 X1000 (0.0-0.04); IMM GRAN% 0.6 % (0.0-0.5); LYMPH# 1.51 X1000 (1.2-3.4); LYMPH% 13.7 % (20.5-51.1); MCH 30.9 PG (27-31); MCHC 33.1 g/dL (33-37); MCV 93.3 FL (81-99); MONO# 0.79 X1000 (0.11-0.59); MONO% 7.2 % (1.7-9.3); MPV 10.1 FL (7.4-10.4); NEUT% 78.3 % (42.2-75.2); PLT 306 X1000 (130-400); RBC 4.47 XMIL (4.7-6.1)
[2016-11-16 07:20] LABS: AGAP 10; BUN 17 mg/dL (8-22); CALCIUM 8.6 mg/dL (8.8-10.2); CHLORIDE 100 mmol/L (98-107); COSMO 287; POTASSIUM 4.1 mmol/L (3.5-5.1); SODIUM 143 mmol/L (136-145); TCO2 33 mmol/L (25-35)
[2016-11-16] MEDS: MUCOMYST 20% INH SCH ×2 (08:10→19:40)
--- NOTE | 2016-11-16 08:39 | PROGRESS NOTE ---
DATE: 11/16/2016 Mr. Hamm is awake, alert, attentive. He seems a little bit brighter today. He was sitting up having his breathing treatment. She has minimal right hemiparesis grading 4+/5 at the deltoid. Tone is slightly increased in the right arm. He has full visual jones on brief bedside testing by confrontational finger counting. I did not test his cognitive function. I do not have any new thoughts or new suggestions today. Thanks for asking me to see Mr. Hamm. cc: Dyana Quach III, MD
[2016-11-16] MEDS: PLAVIX PO SCH (08:40)
[2016-11-16] MEDS: MIRALAX PO SCH ×2 (08:40→23:13)
[2016-11-16] MEDS: PREDNISONE PO SCH (08:40)
[2016-11-16] MEDS: GLUCOPHAGE XR PO SCH (08:40)
[2016-11-16] MEDS: VITAMIN B-12 SL SCH (08:40)
[2016-11-16] MEDS: ASPIRIN EC PO SCH (08:41)
[2016-11-16] MEDS: ROCEPHIN 1 GM/NS 1 GM/50 ML IVPB IV SCH (13:22)
[2016-11-16] MEDS: LEVAQUIN 750 MG in NS 150 ML IV SCH (15:54)
--- NOTE | 2016-11-16 16:06 | PROGRESS NOTE ---
DATE: 11/16/2016 SUBJECTIVE: The patient is a little bit sleepy this morning. No complaints at this time. OBJECTIVE: Vital Signs: Temperature 97.6 degrees, heart rate 69, respiratory rate 15, blood pressure 108/53, and O2 saturation 94% on nasal cannula at 2 liters. General: On examination, this is a chronically ill-looking and frail 76-year-old male, lying in bed, in no acute distress. HEENT: Head is normocephalic, atraumatic. Anicteric sclerae and pale conjunctivae. Mucous membranes moist. Neck: Supple. No JVD noted. No carotid bruits. No lymphadenopathy. No thyromegaly. Cardiovascular: S1 and S2 heard. No murmurs, gallops, or rubs. Regular rate and rhythm. Respiratory: Coarse breath sounds present in both bases with crackles. The patient is not using any accessory muscles or having work of breathing. Abdomen: Soft, nontender to palpation. Bowel sounds present. No organomegaly. Neurological: The patient is able to move 4 extremities. Extremities: The patient has right hemiparesis sees with 3/5 to 4/5 motor strength. LABORATORY DATA: White cell count 11.03, hemoglobin 13.8, hematocrit 41.7, platelets 306,000. BMP is completely unremarkable. ASSESSMENT AND PLAN: 1. Aspiration pneumonia. The patient is on ceftriaxone and Levaquin. White cell count is getting better. We will continue also with breathing treatments as well. 2. Chronic obstructive pulmonary disease exacerbation. We will continue with prednisone plus breathing treatments. 3. Acute cerebrovascular accident. The patient is on aspirin plus Plavix and Pravachol. 4. Uncontrolled diabetes mellitus type 2. The patient is on metformin and sliding scale insulin, and the glucose seems to be much better controlled today. 5. Morbid obesity, aware. 6. Dementia, aware. 7. Vitamin B12 deficiency. The patient is on vitamin B12 supplement. We will continue with the same management. 8. Constipation. We will continue with laxative therapy. 9. Severe left carotid artery stenosis. The patient has been evaluated by Dr. Norris who recommends to have if needed surgery as an outpatient. Dr. Garrison will see this patient in the office. 10. Disposition/physical condition summary. The patient is working with physical therapy, but I think she is still weak, so she needs to go to a rehabilitation facility. The social staff worker will be involved in the case. cc: Adama Franklin MD
[2016-11-16] MEDS: PRAVACHOL PO SCH (21:27)
[2016-11-16] MEDS: LOVENOX SUBQ SCH (21:27)
[2016-11-16] MEDS: DULCOLAX PR SCH (23:13)
[2016-11-17] MEDS: DUONEB (A & A) INH SCH ×6 (03:21→23:15)
[2016-11-17] MEDS: HUMULIN R SUBQ SCH ×4 (06:10→22:46)
[2016-11-17] MEDS: MUCOMYST 20% INH SCH ×2 (08:27→19:29)
[2016-11-17] MEDS: GLUCOPHAGE XR PO SCH (09:54)
[2016-11-17] MEDS: MIRALAX PO SCH ×2 (09:54→20:57)
[2016-11-17] MEDS: ASPIRIN EC PO SCH (09:54)
[2016-11-17] MEDS: PREDNISONE PO SCH (09:54)
[2016-11-17] MEDS: VITAMIN B-12 SL SCH (09:54)
[2016-11-17] MEDS: PLAVIX PO SCH (09:54)
[2016-11-17] MEDS: ROCEPHIN 1 GM/NS 1 GM/50 ML IVPB IV SCH (12:33)
--- NOTE | 2016-11-17 16:05 | PROGRESS NOTE ---
DATE: 11/17/2016 SUBJECTIVE: Patient is doing fine, sitting in a chair. No complaints at this time. OBJECTIVE: Vital Signs: Temperature 99.2 degrees, heart rate 63, respiratory rate 18, blood pressure 108/63, O2 saturation 97% 2 L nasal cannula. General Examination: This is a chronically ill-looking, and frail, 76-year-old male, lying in bed, in no acute distress. HEENT: Head is normocephalic and atraumatic. Anicteric sclerae and pale conjunctivae. Mucous membranes moist. Neck: Supple. No JVD noted. No carotid bruits. No lymphadenopathy. No thyromegaly. Cardiovascular: S1, S2 heard. No murmurs, gallops, or rubs. Regular rate and rhythm. Respiratory: Coarse breath sounds still present in both bases with some crackles. Patient is not using any accessory muscles or having work of breathing. Abdomen: Soft, nontender to palpation. Bowel sounds present. No organomegaly. Neurological: Patient is alert, is able to move 4 extremities, with right hemiparesis with 4/5 motor strength in the right upper extremity. LABORATORY DATA: None from today. ASSESSMENT AND PLAN: 1. Aspiration pneumonia. Patient is on ceftriaxone and Levaquin. We have not ordered labs from today. We are going to do it tomorrow. Patient is on breathing treatments as well and patient reports clinically feeling fine. 2. Chronic obstructive pulmonary disease. We will continue with prednisone plus breathing treatments. 3. Acute cerebrovascular accident. Patient is on aspirin plus Plavix and Pravachol and working with Physical Therapy. 4. Uncontrolled diabetes mellitus type 2. The patient is on metformin and insulin sliding scale. We will continue with same management. 5. Morbid obesity, aware. 6. Severe left carotid artery stenosis that will be taken care of as an outpatient by Dr. Norris. 7. Constipation. We will continue with laxatives and stool softeners. 8. Vitamin B12 deficiency. Patient on vitamin B12 supplementation. 9. Disposition. Patient is working with Physical Therapy and definitely we are waiting for rehab facility. As soon as we get a bed we will let him go. cc: Adama Franklin MD
[2016-11-17] MEDS: LEVAQUIN 750 MG in NS 150 ML IV SCH (16:55)
[2016-11-17 18:54] LABS: URINE CULTURE NEEDED? NO; URINE MICRO REVIEW NEEDED? NO; URINE SOURCE CATH
[2016-11-17 19:09] LABS: BILIRUBIN URINE NEGATIVE (NEGATIVE); BLOOD URINE SMALL (NEGATIVE); COLOR YELLOW; GLUCOSE URINE NEGATIVE (NEGATIVE); LEUKOCYTES URINE NEGATIVE (NEGATIVE); NITRITE URINE NEGATIVE (NEGATIVE); PROTEIN URINE TRACE mg/dL (NEGATIVE); SP GRAVITY URINE 1.016; TURBIDITY URINE HAZY (CLEAR); UROBILINOGEN URINE NORMAL (NORMAL)
[2016-11-17 19:10] LABS: UR EPITHELIAL CELLS <10 /HPF (<10); URINE BACTERIA NEGATIVE /HPF; URINE RBC TNTC /HPF (<10); URINE WBC <10 /HPF (<10)
[2016-11-17] MEDS: PRAVACHOL PO SCH (20:57)
[2016-11-17] MEDS: LOVENOX SUBQ SCH (20:57)
[2016-11-17] MEDS: DULCOLAX PR SCH (23:59)
[2016-11-18] MEDS: DUONEB (A & A) INH SCH ×2 (03:53→08:35)
[2016-11-18 06:35] LABS: MANUAL DIFF NEEDED? NO
[2016-11-18] MEDS: HUMULIN R SUBQ SCH ×3 (06:37→17:26)
[2016-11-18 06:45] LABS: BASO% 0.2 % (0.0-0.8); EOS# 0.08 X1000 (0.0-0.7); EOS% 0.9 % (0.0-10.0); HEMATOCRIT 42.8 % (42.0-52.0); IMM GRAN# 0.17 X1000 (0.0-0.04); IMM GRAN% 1.9 % (0.0-0.5); LYMPH% 18.6 % (20.5-51.1); MCH 30.3 PG (27-31); MCHC 32.7 g/dL (33-37); MCV 92.6 FL (81-99); MONO# 0.63 X1000 (0.11-0.59); MONO% 6.9 % (1.7-9.3); MPV 10.1 FL (7.4-10.4); NEUT% 71.5 % (42.2-75.2); PLT 312 X1000 (130-400); RBC 4.62 XMIL (4.7-6.1)
[2016-11-18] MEDS: PLAVIX PO SCH (08:03)
[2016-11-18] MEDS: PREDNISONE PO SCH (08:03)
[2016-11-18] MEDS: ASPIRIN EC PO SCH (08:03)
[2016-11-18] MEDS: VITAMIN B-12 SL SCH (08:03)
[2016-11-18] MEDS: GLUCOPHAGE XR PO SCH (08:03)
[2016-11-18] MEDS: MIRALAX PO SCH (08:04)
[2016-11-18] MEDS: MUCOMYST 20% INH SCH (08:35)
[2016-11-18] MEDS: ROCEPHIN 1 GM/NS 1 GM/50 ML IVPB IV SCH (11:31)
[2016-11-18] MEDS: LEVAQUIN 750 MG in NS 150 ML IV SCH (15:14)
--- NOTE | 2016-11-18 15:50 | DISCHARGE SUMMARY ---
ADMISSION DATE: 11/12/2016 DISCHARGE DATE: 11/18/2016 CONSULTATIONS: 1. Dr. Dyana Quach III with neurology. 2. Dr. Crow Norris with general surgery. PERTINENT PROCEDURES: 1. Carotid Doppler showed irregular calcific plaque in both carotids extending to the bulbs. There is an extra amount of calcific plaque at the takeoff of the left internal that produces stenosis of hemodynamic consequence and there is an antegrade vertebral flow bilaterally. Study has worsened compared to a study on 09/17/2015. 2. Head CT showed new extensive left cerebral hemisphere hypodensities compatible with stroke, at least 3 to 5 days old. 3. Brain MRA severe stenosis of the cavernous portion of the left internal carotid artery. 4. Neck MRA showed severe stenosis of the left common carotid artery and carotid artery bifurcation. 5. Brain MRI showed subacute left frontal temporal lobe infarct compatible with about 4 days of age. 6. Follow head CT showed no hemorrhage, prominent microvascular ischemic changes with old left infarct. DISCHARGE DIAGNOSES: 1. Aspiration pneumonia. Patient will finish a 10-day course of p.o. Levaquin and supplemental O2 at night. 2. Chronic obstructive pulmonary disease. Continue with the prednisone taper. 3. Acute cerebrovascular accident. The patient is on aspirin and Plavix as well as Pravachol. Continue working with PT. Patient will be discharged to rehab today. 4. Uncontrolled diabetes mellitus type 2. Continue with home medications as well as fingerstick blood sugars a.c. and at bedtime. 5. Morbid obesity. Aware. Patient educated on diet and exercise. 6. Severe left carotid artery stenosis. That will be taken care of outpatient by Dr. Garrison after patient has finished rehab. 7. Constipation. Continue laxatives and stool softeners. 8. Vitamin B12 deficiency. Continue with supplementation. HOSPITAL COURSE: Mr. Hamm is a 76-year-old, male with a history of alcoholic dementia, previous CVA, diabetes myelitis uncontrolled, hypertension, CAD, COPD , who wears home O2 at night. Presented with 4 days of worsening mental status. On admission, the patient was not able to give any type of history. He did have family at bedside that answered questions. They stated that starting on Wednesday prior to his admission he became more nonverbal and less mobile. This waxed and waned over the next 3 days. He would have periods of extreme confusion with immobility and urinary and bowel incontinence, and the night before his admission he would not eat. He became more confused. They did call his PCP on the morning of admission, who instructed him to come to the ED. In the ED he had a CT done that did show extensive left cerebral hemisphere hypodensities compatible with a stroke that were at least 3-5 days old, but probably less than a month old. His laboratory data was unremarkable. On physical exam , the patient was dysphasic and he had some mild right-sided weakness. Vital signs were stable. The patient was admitted for an acute CVA. He had a full stroke workup that was confirmed. He was placed on neurological checks. He had a followup carotid study that did show severe left carotid stenosis. Dr. Norris was consulted. The patient will need to go to rehab to get stronger and then follow up with Dr. Garrison, who has been following this, for possible surgical intervention. For COPD exacerbation patient was placed on IV steroids, bronchodilators and aggressive pulmonary toilet. Patient was also found to have an aspiration pneumonia for which he was on ceftriaxone zone as well as Levaquin. Patient will finish a full 10 days worth of antibiotics with p.o. Levaquin. Patient also had some episodes of constipation. He was started on laxatives as well as stool softeners. That will be continued. The patient does have some minimal right hemiparesis. He is able to move all 4 extremities. The patient has worked with physical therapy. He is appropriate for discharge to rehab today. VITAL SIGNS AT TIME OF DISCHARGE: Temperature is 98.4 degrees, heart rate 53, respirations 18, blood pressure is 114/59. O2 is 97% on 2 L nasal cannula. DISCHARGE DIET: Mechanical soft. DISCHARGE MEDICATIONS: 1. Aspirin 81 mg p.o. daily. 2. Bisacodyl 10 mg p.o. at bedtime. 3. Plavix 75 mg p.o. daily. 4. Vitamin B 12, 13639 mcg sublingual daily. 5. Levaquin 500 mg p.o. daily. 6. Prinivil 2.5 mg p.o. daily. 7. Glucophage XR 1000 mg p.o. daily. 8. Medrol Dosepak. 9. MiraLAX 17 g p.o. b.i.d. 10. Pravachol 40 mg p.o. at bedtime. 11. Flomax 0.4 mg p.o. daily. FOLLOWUP: Patient is being discharged to rehab. He will need to follow up with his primary care physician, Dr. Verna Painter, after rehab as well as Dr. Garrison for possible surgical intervention on his carotid artery after rehab. Patient can return to the ED for any worsening of symptoms. DISCHARGE TIME: 35 minutes. Dictated by LISA Lynn for Adama Franklin MD cc: Adama Franklin MD [facility]
--- NOTE | 2016-11-18 16:05 | ECHO REPORT ---
ORDER DATE: 11/12/2016 INDICATIONS: 1. Cerebrovascular accident 2. Coronary artery disease. 3. Hypertension. 4. Hyperlipidemia. FINDINGS: 1. Right atrium appears normal in size. 2. Trace tricuspid regurgitation. 3. Normal RV size and systolic function. 4. Trace pulmonic insufficiency. 5. Moderate left atrial enlargement at 5.3 cm. 6. No mitral prolapse. I did not see any significant mitral regurgitation. 7. Dilated left ventricle with an end-diastolic dimension of 6.1. Mild left ventricular hypertrophy with a posterior and interventricular septal wall thickness of 1.2 and 1.3 cm, respectively. Normal left ventricular systolic function. Estimated ejection fraction of 55%. 8. Aortic valve opens well and appears trileaflet. No evidence of stenosis or insufficiency. 9. Aorta appears normal in visualized segments. 10. No pericardial effusion seen. cc: MD Phillip Albert CRNP
[2016-11-18 16:40] VITALS: BP 90/77
== END 2016-11-18 17:39 ==
LOC: ED 09:40 → EDIPHOLD 12:49 → SUATTDRO 12:49 → 3N 14:11
PROVIDERS: ATTEND Internal Medicine

== ENCOUNTER 2016-12-28 02:23 | Inpatient (IN) ==
[2016-12-24 11:39] LABS: ALLEN TEST YES; BE 2.9 mmoll (-3.0-3.0); BLOOD TYPE ARTERIAL; DRAW SITE R RADIAL; METHB 0.9 % (0.0-1.5); MODALITY ROOM AIR; O2(CT) 21.7 mL/dL (15.0-23.0); PCO2(98.6) 46 mmHg (35-45); PO2(98.6) 82 mmHg (60-100); SAMPLE BLOOD; SAO2 97.4 % (95.0-100.0); THB 16.3 g/dL (11.5-17.4)
[2016-12-24 12:13] LABS: MANUAL DIFF NEEDED? NO
[2016-12-24 12:16] LABS: BASO% 0.4 % (0.0-0.8); EOS# 0.11 X1000 (0.0-0.7); EOS% 0.8 % (0.0-10.0); HEMATOCRIT 48.1 % (42.0-52.0); IMM GRAN# 0.28 X1000 (0.0-0.04); IMM GRAN% 1.9 % (0.0-0.5); LYMPH# 2.24 X1000 (1.2-3.4); LYMPH% 15.6 % (20.5-51.1); MCH 30.8 PG (27-31); MCHC 33.3 g/dL (33-37); MCV 92.5 FL (81-99); MONO% 7.7 % (1.7-9.3); MPV 10.1 FL (7.4-10.4); NEUT% 73.6 % (42.2-75.2); PLT 320 X1000 (130-400)
[2016-12-24 12:27] LABS: AGAP 12; BUN 17 mg/dL (8-22); CALCIUM 9.3 mg/dL (8.8-10.2); CHLORIDE 101 mmol/L (98-107); COSMO 287; POTASSIUM 4.2 mmol/L (3.5-5.1); SODIUM 143 mmol/L (136-145); TCO2 30 mmol/L (25-35)
[2016-12-28] MEDS ORDERED: DUONEB (A & A) ONE (09:58)
[2016-12-28] MEDS ORDERED: PEPCID ONE (10:00)
[2016-12-28] MEDS ORDERED: LR 1,000 ML ONE (10:00)
[2016-12-28] MEDS ORDERED: REGLAN ONE (10:00)
[2016-12-28] MEDS ORDERED: KEFZOL 1 GM/D5W 1 GM/50 ML IVPB ONE (10:00)
[2016-12-28] MEDS ORDERED: NITROGLYCERIN 50 MG/D5W 50 MG/250 ML IV.SOLN ONE (11:37)
[2016-12-28] MEDS ORDERED: VERSED ONE (11:47)
[2016-12-28] MEDS ORDERED: NS 2,000 ML ONE (12:06)
[2016-12-28] MEDS ORDERED: XYLOCAINE-MPF 1% ONE (12:06)
[2016-12-28] MEDS ORDERED: HEPARIN ONE ×2 (12:06→15:11)
[2016-12-28] MEDS ORDERED: XYLOCAINE 1%/EPI 1:100,000 ONE (12:06)
[2016-12-28] MEDS ORDERED: DIPRIVAN 1% ONE (14:51)
[2016-12-28] MEDS ORDERED: FENTANYL ONE (14:51)
[2016-12-28] MEDS ORDERED: NEOSTIGMINE ONE (15:11)
[2016-12-28] MEDS ORDERED: ZOFRAN ONE (15:12)
[2016-12-28] MEDS ORDERED: QUELICIN (DOSE) ONE (15:12)
[2016-12-28] MEDS ORDERED: NEO-SYNEPHRINE ONE (15:12)
[2016-12-28] MEDS ORDERED: NS 500 ML ONE (15:12)
[2016-12-28] MEDS ORDERED: SODIUM CHLORIDE 0.9% 10 ML ONE (15:12)
[2016-12-28] MEDS ORDERED: ZEMURON ONE (15:12)
[2016-12-28] MEDS ORDERED: NS 250 ML ONE (15:12)
[2016-12-28] MEDS ORDERED: ROBINUL ONE (15:12)
[2016-12-28] MEDS ORDERED: LR 3,000 ML ONE (15:12)
--- NOTE | 2016-12-28 15:51 | OPERATIVE NOTE ---
PROCEDURE DATE: 12/28/2016 PREOPERATIVE DIAGNOSIS: Left carotid stenosis. POSTOPERATIVE DIAGNOSIS: Left carotid stenosis. PRINCIPAL PROCEDURE: Left carotid endarterectomy with patch angioplasty. SURGEON: Scarlet Garrison MD PATCH MACHINE OPERATOR: Mathew Lester MD ANESTHESIA: General in addition to local anesthetic. ESTIMATED BLOOD LOSS: 100 mL. DRAINS: A TLS drain left neck. INDICATIONS: Tushar Hamm is a 76-year-old white male, who in October was hospitalized with a stroke with right-sided symptoms. At the time of his hospitalization, a carotid study was performed, which documented significant left carotid stenosis at the bulb. He has been electively scheduled for a left carotid endarterectomy. He continues to have aphasia and deficits involving his right side of body. FINDINGS: He had a significant plaque involving the bulb and the proximal internal carotid artery. It feathered nicely distally and we did perform a patch angioplasty. Dr. Lester was present throughout this case and his presence was necessary to help expose the common carotid artery and its branches, also to spa assistant manager or follow as we sewed the patch to close the endarterectomy site. His help was also necessary to place the shunt. DESCRIPTION OF PROCEDURE: The patient was brought to the operating room, placed supine, received general anesthesia, was intubated. I was there for positioning. We placed a roll underneath his shoulders, extended his neck, turned his head to the right, and prepped and draped his left neck. I used an Ioban on the skin. I used local anesthetic at our incision site. He received Ancef prophylactically. He was placed in slight reverse Trendelenburg. I have made an incision along the anterior border of the left sternocleidomastoid muscle and this incision was carried down through the skin and subcutaneous tissue to the platysma muscle, which was divided using the cautery. We used a Gelpi for self-retaining retraction. We used forceps and scissors to dissect out the common carotid artery and we isolated it with a large vessel loop. We identified the facial vein branch off the internal jugular vein and suture ligated it with 3-0 silk ties. We dissected the common carotid artery from proximal to distal. We identified the branches. We isolated the superior thyroid artery and controlled it with a 2-0 silk tie. We placed a large vessel loop around the external carotid artery. We dissected the internal carotid artery distal to the plaque and placed a vessel loop around it. Once we were happy with our dissection, we gave the patient 6000 units of IV heparin. It must be noted that we identified the hypoglossal nerve and also the vagus nerve and preserved them. After 3 minutes of IV heparin. We stopped flow through the common carotid artery using vessel loops alone. We performed an arteriotomy in the lateral aspect of the distal common carotid artery, we extended through the bulb and into the internal carotid artery using Alberto scissors. We then placed a shunt. Initially, we placed it proximally and then distally. We did use a shunt clamp to control the shunt in the internal carotid artery. We used the vessel loops alone to control it proximally. We used a [place] elevator to remove the plaque from proximal to distal. It feathered nicely distally. I used a 0.8 cm wide carotid patch to close the arteriotomy site and used a double-arm 6-0 Prolene to sew this patch in place. Before completing the closure, we removed the shunt and we allowed the internal carotid artery to back bleed through our arteriotomy site. Also, the external carotid artery and the common carotid artery. We completed the closure of the arteriotomy site, re- established flow through the external carotid artery, and then the internal carotid artery. I had to place 2 single-arm stitches to control bleeding from our arteriotomy site. Otherwise, it was good. We placed a TLS drain. It was brought out through a separate stab incision inferior to the wound and secured it to the skin with a 3-0 silk stitch. I closed the wound in layers. First layer was a running 2-0 Vicryl stitch to reapproximate the platysma muscle and the skin was closed with 4-0 Monocryl subcuticular stitch. Dressings were applied. Plans are for him to go the recovery room and then the ICU. cc: Scarlet Garrison MD
[2016-12-28] MEDS ORDERED: ZOFRAN IV PRN (17:20)
[2016-12-28] MEDS ORDERED: TYLENOL PO PRN (17:22)
[2016-12-28] MEDS ORDERED: D50W SYRINGE IV PRN (17:42)
[2016-12-28] MEDS: LR 1,000 ML IV SCH (17:48)
[2016-12-28] MEDS: HUMALOG SUBQ SCH (20:21)
[2016-12-28] MEDS: NORCO-5 PO PRN (23:22)
[2016-12-29] MEDS: LR 1,000 ML IV SCH (06:24)
[2016-12-29 06:26] LABS: AGAP 10; BUN 11 mg/dL (8-22); CALCIUM 8.2 mg/dL (8.8-10.2); CHLORIDE 103 mmol/L (98-107); COSMO 282; POTASSIUM 4.2 mmol/L (3.5-5.1); SODIUM 141 mmol/L (136-145); TCO2 28 mmol/L (25-35)
[2016-12-29] MEDS: HUMALOG SUBQ SCH ×5 (06:27→21:46)
[2016-12-29] MEDS: MIRALAX PO SCH ×2 (08:21→21:41)
[2016-12-29] MEDS: FLOMAX PO SCH (08:21)
[2016-12-29] MEDS: ASPIRIN PO SCH (08:21)
[2016-12-29] MEDS: PRINIVIL PO SCH (08:21)
[2016-12-29] MEDS: NORCO-5 PO PRN ×2 (08:53→16:06)
--- NOTE | 2016-12-29 17:50 | PROGRESS NOTE ---
DATE: 12/29/2016 Mr. Hamm is postoperative day #1 from a left carotid endarterectomy. He is in the ICU. Hemodynamically stable. He has no new neurologic deficits. He has had very little out of his drain and very little swelling involving his left neck. I think he is doing well overall, status post carotid endarterectomy. We will remove his arterial line. We will advance his diet. We will remove his TLS drain, and transfer him to the floor. cc: Scarlet Garrison MD
[2016-12-29] MEDS ORDERED: LR 1,000 ML IV SCH (18:03)
[2016-12-29] MEDS ORDERED: PRAVACHOL PO SCH (21:00)
[2016-12-30] MEDS: NORCO-5 PO PRN ×2 (00:30→09:18)
[2016-12-30] MEDS: HUMALOG SUBQ SCH ×2 (06:01→12:09)
[2016-12-30] MEDS: FLOMAX PO SCH (09:17)
[2016-12-30] MEDS: PRINIVIL PO SCH ×2 (09:25→09:31)
[2016-12-30] MEDS: ASPIRIN PO SCH (09:26)
[2016-12-30] MEDS: MIRALAX PO SCH (09:26)
[2016-12-30 12:35] VITALS: BP 114/64
--- NOTE | 2016-12-30 13:46 | DISCHARGE SUMMARY ---
ADMISSION DATE: 12/28/2016 DISCHARGE DATE: 12/30/2016 ADMITTING DIAGNOSIS: Severe left carotid stenosis. POSTOPERATIVE DIAGNOSIS: Severe left carotid stenosis. PRINCIPAL PROCEDURE: Left carotid endarterectomy with patch angioplasty on 12/28/2016. DISCHARGE DIET: Regular. DISCHARGE DISPOSITION: He will return to our outpatient office in 7-10 days for followup. DISCHARGE DISABILITY: Full. DISCHARGE MEDICATIONS: He is to return to his home medications. HOSPITAL COURSE: Mr. Tushar Hamm is a 76-year-old white male who has already suffered a stroke with right-sided symptoms. During his evaluation for stroke it was noted that he had severe stenosis at the takeoff of the left internal carotid artery. He is now at least 6 weeks out from his stroke and we felt we should proceed with a left carotid endarterectomy. He was admitted on the day of surgery, he went to the operating room and underwent a left carotid endarterectomy with patch angioplasty. We felt the surgery went well. We did use a shunt during the surgery. We had left a TLS drain in the left neck. He went to the recovery room and then the ICU. We felt he was doing well in the ICU. On postop day 1, he was transferred to the floor and on postop day 2 it was felt safe to discharge him home under the care of his family. It was felt at discharge that he had very little swelling involving his neck. His wound was intact. He had no new neurologic deficit and his vital signs were adequate. DISCHARGE INSTRUCTIONS: He will go back on his regular home medications with followup in our outpatient offices. cc: Scarlet Garrison MD
== END 2016-12-30 13:32 | disposition home health service (06) ==
LOC: SURHOLD 02:23 → ICU 14:19 → 4N 12-30 04:58 → EDSTATUS 12-31 07:00
PROVIDERS: ADMIT Surgery; ATTEND Surgery

== ENCOUNTER 2018-08-14 19:10 | Inpatient (IN) ==
[2018-08-14 19:58] LABS: ALLEN TEST YES; BE 1.8 mmoll (-3.0-3.0); BLOOD TYPE ARTERIAL; HCO3-(ACT) 26.2 mmoll (20.0-26.0); METHB 0.9 % (0.0-1.5); O2(CT) 22.1 mL/dL (15.0-23.0); O2HB 92.8 % (95.0-99.0); PCO2(98.6) 47 mmHg (35-45); PO2(98.6) 69 mmHg (60-100); SAMPLE BLOOD; SAO2 95.4 % (95.0-100.0); pH(98.6) 7.38 (7.35-7.45)
[2018-08-14 19:59] LABS: MODALITY CANNULA
[2018-08-14] MEDS ORDERED: ZOSYN 3.375 GM in NS 50 ML IV ONE (20:55)
[2018-08-14 21:12] LABS: BASO# 0.04 X1000 (0.0-0.2); BASO% 0.3 % (0.0-0.8); EOS# 0.02 X1000 (0.0-0.7); EOS% 0.1 % (0.0-10.0); HEMATOCRIT 50.8 % (42.0-52.0); HEMOGLOBIN 16.3 g/dL (14.0-18.0); IMM GRAN# 0.06 X1000 (0.0-0.04); IMM GRAN% 0.4 % (0.0-0.5); LYMPH# 0.71 X1000 (1.2-3.4); LYMPH% 4.7 % (20.5-51.1); MCH 28.4 PG (27-31); MCHC 32.1 g/dL (33-37); MCV 88.5 FL (81-99); MONO# 0.37 X1000 (0.11-0.59); MONO% 2.5 % (1.7-9.3); MPV 10.4 FL (7.4-10.4); NEUT# 13.88 X1000 (1.4-6.5); PLT 575 X1000 (130-400); RBC 5.74 XMIL (4.7-6.1); RDW 14.8 % (11.5-14.5); WBC 15.08 X1000 (4.8-10.8)
--- NOTE | 2018-08-14 21:21 | Diag Imaging Result Doc PS360 ---
EXAM: CT HEAD W/O CONTRAST INDICATION: ams TECHNIQUE: This exam was performed using automated exposure control, adjustment of mA or kV according to patient size, and/or use of iterative reconstruction technique. COMPARISON: 05/28/2017 FINDINGS: There is advanced multifocal encephalomalacia, mainly on the left and there is advanced white matter microangiopathy, stable. There is no definite acute infarct given the limited sensitivity of CT versus MRI. There is no discrete intracranial mass, mass effect, or intracranial hemorrhage. The surrounding soft tissues and bony structures are essentially unremarkable. IMPRESSION: Extensive chronic changes that are stable. No definite acute intracranial pathology by CT. Electronically signed by Raghavendra Valero 08/14/2018 9:19 PM
[2018-08-14 21:22] LABS: URINE SOURCE CATH
[2018-08-14 21:27] LABS: BILIRUBIN URINE NEGATIVE (NEGATIVE); BLOOD URINE NEGATIVE (NEGATIVE); COLOR YELLOW; GLUCOSE URINE NEGATIVE (NEGATIVE); KETONE URINE 20 mg/dL (NEGATIVE); LEUKOCYTES URINE NEGATIVE (NEGATIVE); NITRITE URINE NEGATIVE (NEGATIVE); PROTEIN URINE 300 mg/dL (NEGATIVE); SP GRAVITY URINE 1.026; TURBIDITY URINE CLEAR (CLEAR); UROBILINOGEN URINE 2 mg/dL (NORMAL)
[2018-08-14 21:28] LABS: UR EPITHELIAL CELLS <10 /HPF (<10); URINE BACTERIA NEGATIVE /HPF; URINE RBC <10 /HPF (<10); URINE WBC <10 /HPF (<10)
[2018-08-14 21:29] LABS: AGAP 15; ALB/GLOB RATIO 1.3; ALBUMIN 4.3 g/dL (3.5-5.0); ALKALINE PHOSPHATASE 62 U/L (32-122); BUN 15 mg/dL (8-22); CALCIUM 9.4 mg/dL (8.8-10.2); CHLORIDE 95 mmol/L (98-107); COSMO 283; CREATININE 0.9 mg/dL (0.7-1.2); ESTIMATED GFR > 60; GLUCOSE 215 mg/dL (70-104); GOT 18 U/L (10-34); GPT 14 U/L (10-44); POTASSIUM 4.5 mmol/L (3.5-5.1); SODIUM 138 mmol/L (136-145); TCO2 28 mmol/L (25-35); TOTAL BILIRUBIN 0.44 mg/dL (0.20-1.00); TOTAL PROTEIN 7.7 g/dL (6.3-8.3)
--- NOTE | 2018-08-14 21:39 | Diag Imaging Result Doc PS360 ---
EXAM: CHEST-1 VIEW INDICATION: cough TECHNIQUE: One view COMPARISON: 05/28/2017 FINDINGS: Inspiration is suboptimal which is causing central vascular crowding. There is mild elevation of the right hemidiaphragm. No well-defined consolidation is identified. There is no discrete pleural fluid collection or pneumothorax. There are stable CABG changes and stable cardiomegaly. IMPRESSION: Cardiomegaly and low lung volumes. No definite acute pathology, otherwise. Electronically signed by Raghavendra Valero 08/14/2018 9:37 PM
--- NOTE | 2018-08-14 21:48 | PROVIDER DOCUMENTATION ---
This chart was entered by Yvonne Padron Scribe, acting as scribe for Luca Rob MD. HPI-General Adult - General Chief Complaint: Altered Mental Status Stated Complaint: AMS Time Seen by Provider: 08/14/18 19:41 Source: family Allergies/Adverse Reactions: Patient Allergies Allergy/AdvReac Type Severity Reaction Status Date / Time No Known Allergies Allergy Verified 08/14/18 19:31 Home Medications: Home Medication List Medication Instructions Recorded Confirmed Last Taken Type LISINOpril [Prinivil] 2.5 mg PO DAILY 08/27/15 05/31/17 12/27/16 History Metformin E.r. [Glucophage Xr] 1,000 mg PO DAILY 08/27/15 05/31/17 12/27/16 History Aspirin EC 81 mg PO DAILY #30 tablet 11/18/16 05/31/17 12/27/16 Rx Cyanocobalamin S.l. [Vitamin B-12] 2,500 microgm SL DAILY #30 tablet 11/18/1612/27/16 Rx PRAVAstatin [Pravachol] 40 mg PO QHS #30 tablet 11/18/16 05/31/17 12/27/16 Rx Aspirin 325 mg PO DAILY tablet 06/03/17 Unknown Rx Cyanocobalamin S.l. [Vitamin B-12] 2,500 microgm SL DAILY tablet 06/03/17 Unknown Rx LISINOpril [Prinivil] 2.5 mg PO DAILY tablet 06/03/17 Unknown Rx PRAVAstatin [Pravachol] 40 mg PO QHS tablet 06/03/17 Unknown Rx Pantoprazole [Protonix] 40 mg PO DAILY@0700 tablet 06/03/17 Unknown Rx Sennosides/Docusate Sodium 2 each PO BID tablet 06/03/17 Unknown Rx [Pericolace] Tamsulosin [Flomax] 0.4 mg PO DAILY capsule 06/03/17 Unknown Rx - History of Present Illness -Gen Adult Nature of Presenting Problems: Pt is 77/m presenting to ED w/ altered mental status. Pt has demenia, but has been getting worse the last few nights. His at bedside sts that he went to have a nap at 4 and when she came back in the room he was sitting on the side of the bed and had vomited into the floor. She sts that he is acting out of character and is not coherent. She sts that he has been eating and drinking normally. reports that he also has had some yeast on his genital area, but it has not been treated. Per EMS, pt was 86% o2 on room air. Location of Pain/Injury: reports: none Quality of Pain: reports: none Severity: reports: moderate Onset/Duration: reports: 1 week ago Timing: reports: still present Context/Activities at Onset: reports: none Modifying Factors: improves with: coughing Associated Symptoms: reports: cough, nausea, vomiting. denies: fever/chills Similar Symptoms Previously?: Yes Recently seen or treated by another doctor?: No Review of Systems - Adult - REVIEW OF SYSTEMS - ADULT ROS:: ROS per family Constitutional: denies: chills, fever Eyes: denies: dry eyes Ears, Nose, Mouth & Throat: reports: no symptoms reported Cardiovascular: reports: no symptoms reported. denies: chest pain, edema Respiratory: reports: cough. denies: shortness of breath, wheezing Gastrointestinal: reports: no symptoms reported Genitourinary: reports: no symptoms reported Musculoskeletal: reports: no symptoms reported Integumentary: reports: no symptoms reported Neurological: reports: no symptoms reported Psychiatric: reports: no symptoms reported Endocrine: reports: no symptoms reported Hematologic/Lymphatic: reports: no symptoms reported Allergic/Immunologic: reports: no symptoms reported All Other Systems: Reviewed and Negative Past History - Adult - PAST MEDICAL HISTORY-ADULT Review of Records: reports: Old Records Reviewed, Nursing Assessment Review, Medications Reviewed, Social history reviewed & non-contributory. Cardiovascular: reports: CAD, HTN, hyperlipidemia, [place] Respiratory: reports: COPD Gastrointestinal: reports: pancreatitis Genitourinary: reports: other (bladder ca, BPH) Endocrine/Immune: reports: Diabetes - PRIOR SURGERIES/PROCEDURES Surgical/Procedure History: reports: CABG, other (urinary stents) - IMMUNIZATION STATUS Childhood Immunizations: See Nurse Assessment Flu Vaccine: See Nurse Assessment - SOCIAL HISTORY Smoking: quit greater than 1 year Substance Use: none/never Alcohol Use Frequency: never Living Situation: family Physical Exam-General - CONSTITUTIONAL General Appearance: no apparent distress, obese, lethargic, other - EYES Eyes: PERRL/EOMI - HEAD, EARS, NOSE, MOUTH & THROAT HENMT: normocephalic/atraumatic, moist mucous membranes, normal ENT inspection - NECK Neck: non-tender, full range of motion, supple - RESPIRATORY Respiratory: chest non-tender, rhonchi, wheezing, increased rate - CARDIOVASCULAR Cardiovascular: regular rate, rhythm, no edema - GASTROINTESTINAL (ABDOMEN) Abdominal Exam: normal bowel sounds, non tender, soft - LYMPHATIC Lymphatic: no adenopathy - SKIN Integumentary: normal color, normal turgor, warm/dry - PSYCHIATRIC Psych/Mental Status: negative: oriented x 3 (Pt was able to state that he was not in pain, but could not answer whether or not he knew where he was) Progress - PLAN OF CARE/RESULTS Progress/Plan/Lab Results: Vital Signs - 8 hr 08/14/18 19:26 Temperature 99 F Pulse Rate 89 Respiratory Rate 32 H Blood Pressure 166/92 O2 Sat by Pulse Oximetry 95 Laboratory Results - last 24 hr 08/14/18 08/14/18 19:27 19:42 Specimen Type ARTERIAL Sample Site R RADIAL pH 7.38 pCO2 47 H pO2 69 HCO3 26.2 H Base Excess 1.8 Oxyhemoglobin 92.8 L ABG O2 Sat (Calculated) 22.1 ABG O2 Saturation 95.4 ABG Carboxyhemoglobin 1.80 ABG Methemoglobin 0.9 Candelario Test YES A-a O2 Difference 100.0 Total Hemoglobin 17.0 Lactate 1.70 Liter Flow 3.0 Blood Gas Modality CANNULA FiO2 % 32.0 POC Glucose 243 H D Orders Category Date Time Status CHEST-1 VIEW [RAD] Stat Exams 08/14/18 19:[address] HEAD W/O CONTRAST [CT] Stat Exams 08/14/18 19:51 Ordered ABG [RESP] Routine Lab 08/14/18 19:42 Completed AMMONIA [CHEM] Stat Lab 08/14/18 19:42 Uncollected CBC WITH ELECTRONIC DIFF [HEME] Stat Lab 08/14/18 19:41 Uncollected COMPREHENSIVE METABOLIC PANEL [CHEM] Stat Lab 08/14/18 19:41 Uncollected PRO B-NATRIURETIC PEPTIDE Stat Lab 08/14/18 19:51 Uncollected TROPONIN T Stat Lab 08/14/18 19:51 Uncollected UA [URINALYSIS] [URINALYSIS] Stat Lab 08/14/18 19:41 Uncollected EKG [EKG] Stat Ther 08/14/18 19:33 Ordered Result Diagrams: 08/14/18 20:46 08/14/18 20:46 - EKG 1 Time of EKG reading by physician:: 20:32 EKG Read and Signed by:: Luca Rbo EKG Interpretation (*Must complete 3 of following elements*): Abnormal (Normal sinus rhythm, Left axis deviation Right bundle branch block, Possible Lateral infarct, age undetermined, Inferior infarct, age undetermined, Abnormal ECG) Rate: 96 Rhythm: sinus [place]: left QRS: normal IA Interval: normal - CT/MRI 1 CT Study: Head Impression: Abnormal (COMPARISON: 05/28/2017 FINDINGS: There is advanced multifocal encephalomalacia, mainly on the left and there is advanced white matter microangiopathy, stable. There is no definite acute infarct given the limited sensitivity of CT versus MRI. There is no discrete intracranial mass, mass effect, or intracranial hemorrhage. The surrounding soft tissues and bony structures are essentially unremarkable. IMPRESSION: Extensive chronic changes that are stable. No definite acute intracranial pathology by CT. Electronically signed by Raghavendra Valero 08/14/2018 9:19 PM [id number]) Comparison with other Films: changes noted - CONSULTS/PCP/HOSPITALIST Notification Time Discussed: 21:47 Consult Disposition: Will see in ED, Admit Departure - Departure Date of Disposition Decision: 08/14/18 Time of Disposition Decision: 21:45 DIAGNOSIS: Pneumonia, Hypoxia, Vomiting, Altered mental status, CHF (congestive heart failure) Disposition: ADMITTED INPATIENT 09 Certified Medical Emergency: Emergent Condition: Fair Referrals and Follow-Ups: Verna Painter MD [Primary Care Provider] - - Critical Care Note This patient required my direct & personal management of CC.: No Attestation - Physician/ ANTWAN Attestation Patient care was provided by Advanced Practice Provider:: No The physician spent face to face time with patient:: Yes Advanced Practice Provider documentation review:: Supervising physician onsite and consulted in the evaluation and care of this patient. The physician did have a face to face encounter with the patient. This chart was documented by the indicated scribe, (Yvonne Padron Scribe) and accurately reflects the services I performed and decisions made by me, Luca Rob MD, as attested by the provider's signature.
--- NOTE | 2018-08-15 00:56 | HISTORY AND PHYSICAL ---
PRIMARY CARE PHYSICIAN: Dr. Painter. CHIEF COMPLAINT: Coughing, nausea, vomiting x1 week. HISTORY OF PRESENTING ILLNESS: A 69-year-old elderly male with a history of dementia, hypertension, diabetes mellitus type 2, CVA with right-sided deficit, basically bed bound, who was brought to the emergency department due to patient having worsening mental status changes than his baseline. The patient was also coughing and not feeling well, as per his . The patient's was evaluated in the emergency department and he was mildly confused and most of the history is obtained from his . The patient had imaging done that did show possibility of pneumonia. Subsequently, he will need admission for further management. PAST MEDICAL HISTORY: Includes CVA with right-sided deficit, coronary artery disease, dementia, hypertension, diabetes mellitus type 2. PAST SURGICAL HISTORY: Coronary artery bypass. ALLERGIES: No known drug allergies. CURRENT MEDICATIONS: As listed in the medication reconciliation sheet. SOCIAL HISTORY: He is a former smoker. History of alcohol abuse in the past. No history of illicit drug use. FAMILY HISTORY: No history of coronary artery disease. REVIEW OF SYSTEM: Unable to obtain due to patient being moderately to severe confused. PHYSICAL EXAMINATION: GENERAL: The patient is agitated. VITAL SIGNS: Temperature 99.0 degrees, pulse 89, respirations 32, blood pressure 166/92. HEENT: Atraumatic, normocephalic. NECK: No masses. CHEST: Rhonchi. CARDIOVASCULAR: Regular rate and rhythm. ABDOMEN: Soft. Positive bowel sounds. EXTREMITIES: Trace edema. NEUROLOGIC: He is awake and arousable, but is severely confused. GENITOURINARY: No bladder distention. SKIN: Warm. LABORATORIES AND STUDIES: Sodium 138, potassium 4.5, chloride 95, CO2 is 28, BUN is 15, creatinine 0.9, glucose is 215. WBCs 15.08, hemoglobin 16.3, hematocrit 50.8, platelets 575,000. Chest x-ray shows cardiomegaly and low lung volumes. There is no acute pathology. ASSESSMENT: This is a 77-year-old elderly male with a history of coronary artery disease, dementia, hypertension and cerebrovascular accident, who was brought to the emergency department due to patient being mildly confused and coughing for the past week. He was evaluated in the emergency department and due to his presenting symptoms it was thought that he would need admission for further management. 1. Altered mental status, multifactorial. 2. Probable bronchitis versus early pneumonia. 3. Diabetes mellitus type 2. 4. Dementia. PLAN: 1. We will admit patient to medical floor with telemetry. 2. We will continue with neuro checks. 3. Continue gentle hydration. 4. We will check blood cultures. Start patient on empiric antibiotics. 5. We will continue with Accu-Cheks and put him on sliding scale insulin regimen. 6. We will restart his home medications. 7. Put him on DVT prophylaxis with SCDs. 8. We will continue to follow and reassess and make further recommendation based on the patient's clinical course. 9. As per his , patient is DNR level 1. He does not want any intubation, or mechanical ventilation or CPR. cc: Jesu Lynch MD
[2018-08-15] MEDS ORDERED: ZOFRAN IV PRN (01:14)
[2018-08-15] MEDS: NS 1,000 ML IV SCH ×2 (01:27→19:52)
[2018-08-15] MEDS: ROCEPHIN 1 GM in NS 50 ML IV SCH (01:29)
[2018-08-15] MEDS: DUONEB (A & A) INH SCH ×7 (04:09→23:27)
[2018-08-15] MEDS: PROTONIX PO SCH (06:03)
--- NOTE | 2018-08-15 07:16 | EKG Report ---
Test Performed on : 08/14/2018 8:32:07 PM Test Reason : AMS Blood Pressure : / mmHG Vent. Rate : 096 BPM Atrial Rate : 096 BPM P-R Int : 140 ms QRS Dur : 136 ms QT Int : 436 ms P-R-T Axes : 058 -54 104 degrees QTc Int : 550 ms Normal sinus rhythm. Left axis deviation Right bundle branch block Possible Lateral infarct , age undetermined Inferior infarct (cited on or before 24-MAY-2007) Abnormal ECG When compared with ECG of 15-NOV-2016 01:49, Significant changes have occurred Unconfirmed Result
[2018-08-15] MEDS: PRINIVIL PO SCH (08:58)
--- NOTE | 2018-08-15 12:42 | PROGRESS NOTE ---
DATE: 08/15/2018 SUBJECTIVE: Patient resting comfortably in bed. OBJECTIVE: Vital signs: Temperature 98.6 degrees, pulse 71, respirations 18, blood pressure 127/63, pulse oximetry 98%. HEENT: Patient is atraumatic, normocephalic. Cardiovascular: S1, S2. Respiratory: Has evidence of good air entry bilaterally. Abdomen: Soft, nontender. No masses felt. Extremities: No evidence of edema. Central nervous system: No obvious focal deficit noted. LABORATORY DATA: WBC is 15.08, hematocrit 50.8 with a platelet count of 575,000. ABG 7.38/47/69/95.4%. Sodium is 138, potassium 4.5, chloride is 95, bicarb is 28, BUN is 15, creatinine 0.9. IMAGING: X-ray of the chest does not show any acute pathology. CT scan of the brain: No acute changes. ASSESSMENT AND PLAN: 1. Encephalopathy. Query etiology. We will obtain an MRI of the brain, EEG, ammonia level, as well as thyroid function test. 2. Acute bronchitis. The patient's x-ray does not show any obvious infiltrates. We will get a CT of the chest without contrast. Maintain patient on nebulized bronchodilators, and also antitussive as well as antibiotics. 3. Diabetes mellitus. Monitor blood sugar levels and maintain patient on sliding scale insulin. Check hemoglobin A1c level. 4. History of cerebrovascular accident. Maintain patient on aspirin for secondary prevention and also recommend physical therapy. 5. Coronary artery disease. Asymptomatic. 6. Hypertension. Continue current antihypertensive regimen. 7. Deep vein thrombosis prophylaxis. Lovenox. 8. Gastrointestinal prophylaxis. PPI. cc: Billy Bond MD
[2018-08-15] MEDS: ASPIRIN PO SCH (14:17)
[2018-08-15] MEDS: ZITHROMAX 500 MG/NS 500 MG/250 ML IVPB IV SCH (14:17)
--- NOTE | 2018-08-15 14:36 | Diag Imaging Result Doc PS360 ---
MRI BRAIN W/O CONTRAST - 08/15/2018 INDICATION: ams COMPARISON: 08/14/2018, 11/12/2016 FINDINGS: There is no area of restricted diffusion. There is significant patient motion artifact. There is worsening extensive cerebral white matter gliosis bilaterally left greater than right. No intracranial mass or hemorrhage. IMPRESSION: Worsening chronic stroke burden. No acute abnormality. Electronically signed by Topher Andrews 08/15/2018 2:34 PM
[2018-08-15] MEDS: HUMULIN R SUBQ SCH ×2 (19:52→21:24)
[2018-08-16] MEDS: ROCEPHIN 1 GM in NS 50 ML IV SCH (01:26)
[2018-08-16] MEDS: DUONEB (A & A) INH SCH ×6 (03:46→23:25)
[2018-08-16] MEDS: PROTONIX PO SCH (06:13)
[2018-08-16] MEDS: HUMULIN R SUBQ SCH ×4 (06:18→21:45)
[2018-08-16 08:31] LABS: HEMOGLOBIN A1C 6.9 % (4.8-6.0)
--- NOTE | 2018-08-16 08:54 | Diag Imaging Result Doc PS360 ---
EXAM: CT THORAX W/CONTRAST 08/16/2018 HISTORY: r/o pneumonia TECHNIQUE: This exam was performed using automated exposure control, adjustment of mA or kV according to patient size, and/or use of iterative reconstruction technique. COMMENT: There are no previous studies available for comparison. There is a small right pleural effusion. There may be an even smaller effusion in the left costophrenic sulcus. There is atelectasis or pneumonia in both posterior costophrenic sulci more so on the right than the left. There is also some apparent atelectasis in the basilar portions of the right middle lobe. There is extensive atherosclerotic calcification in the aorta and its branches with some noncalcified plaque posteriorly in the aortic arch. There is extensive calcification in the coronary arteries. There has been previous sternotomy. There is no evidence of significant adenopathy. There is no evidence of acute disease in the visualized portion of the abdomen. The liver is somewhat hypodense suggesting fatty change. IMPRESSION: Bibasilar atelectasis and/or pneumonia. Electronically signed by Guanaco Alcantar 08/16/2018 8:51 AM
[2018-08-16] MEDS: LOVENOX SUBQ SCH (09:25)
[2018-08-16] MEDS: ZITHROMAX 500 MG/NS 500 MG/250 ML IVPB IV SCH ×2 (09:25→14:12)
[2018-08-16] MEDS: PRINIVIL PO SCH (09:25)
[2018-08-16] MEDS: ASPIRIN PO SCH (09:25)
[2018-08-16] MEDS ORDERED: MUCOMYST 10% INH ONE (14:26)
--- NOTE | 2018-08-16 15:15 | PROGRESS NOTE ---
DATE: 08/16/2018 SUBJECTIVE: Patient has no major complaints. He still seems very rhonchorous though in his breathing. He is in the midst of getting an EEG. OBJECTIVE: Vital Signs: Blood pressure is 103/54, heart rate 69, respiratory rate is 16, temperature 98.6 degrees, satting 98% on 2 L. Cardiovascular: Regular rate and rhythm. Pulmonary: He has rhonchi, a lot of upper airway noise. GI: Soft, nontender, nondistended. Bowel sounds are positive. LABORATORY DATA: I do not have anything. No new data today. His A1c is 6.9. PROBLEM LIST: 1. Pneumonia: He has some bilateral lower lobe infiltrates per CT. We will continue breathing treatments and things of that nature. We will continue breathing treatments. I am going to add a mucolytic. He is on azithromycin and Rocephin for the time being. He is on breathing treatments. We will continue to monitor. 2. Encephalopathy: Which is possibly multifactorial. EEGs: He is in the process of getting that. Magnetic resonance imaging: There is a lot of cerebral white matter gliosis than he had previously, but no acute infarct, so he may just have worsening vascular dementia. 3. Diabetes: Continue his regular medications and follow. 4. Coronary artery disease: We will continue his regular medications. 5. Disposition: I am not sure if he may need further evaluation. We will get physical therapy and social work to work on assistance with discharge planning. I am not sure if he can take care of himself at home. We will continue to follow closely. He has had a stroke, but he is not on any statin therapy. I think we will check his LDL, make sure that is normal, and then probably initiate some sort of statin therapy. cc: Trey Mcfarland MD
--- NOTE | 2018-08-16 15:27 | EEG REPORT ---
DATE: 08/15/2018 REFERRING PHYSICIAN: Dr. Bond. HIGH SCHOOL ACADEMIC COACH: Linda Mabry. BACKGROUND INFORMATION AND TECHNIQUE: This is a digitally recorded portable routine EEG with video. HISTORY: This is a 77-year-old male with history of dementia, hypertension, obesity, and stroke with right-sided residual deficit, admitted with mental status changes, coughing, nausea, and vomiting. EEG is ordered to detect evidence of seizures. EEG FINDINGS: A posterior dominant alpha rhythm is notably absent. The background at maximal alertness consists of 5 to 6 hertz theta slowing with some admixed faster frequencies. No definite persistent focal slowing. No epileptiform discharges. No seizures. Hyperventilation was not performed. Photic stimulation did not alter the record. Brief drowsiness patterns were seen but stage II sleep was not observed. EKG demonstrates regular intervals. IMPRESSION AND CLINICAL CORRELATION: Abnormal routine EEG due to mild generalized slowing suggestive of a mild nonspecific encephalopathy. No epileptiform discharges and no seizures are seen on the current study. This does not rule out an underlying seizure disorder. Generalized slowing is a nonspecific finding that can be seen in processes that diffusely affect the cerebrum, including toxic metabolic, pharmacologic, post hypoxic, and infectious etiologies, amongst others. cc: MD Billy Springer MD
[2018-08-16] MEDS ORDERED: MUCOMYST 10% INH SCH (19:30)
[2018-08-16] MEDS: NAMENDA PO SCH (20:43)
[2018-08-16] MEDS: LIPITOR PO SCH (20:44)
[2018-08-17] MEDS: ROCEPHIN 1 GM in NS 50 ML IV SCH (01:11)
[2018-08-17] MEDS: DUONEB (A & A) INH SCH ×6 (04:21→23:27)
[2018-08-17] MEDS: HUMULIN R SUBQ SCH ×4 (06:29→21:07)
[2018-08-17] MEDS: PROTONIX PO SCH (06:46)
[2018-08-17 08:28] LABS: BASO# 0.05 X1000 (0.0-0.2); BASO% 0.5 % (0.0-0.8); EOS% 1.8 % (0.0-10.0); HEMATOCRIT 46.3 % (42.0-52.0); HEMOGLOBIN 14.7 g/dL (14.0-18.0); IMM GRAN# 0.03 X1000 (0.0-0.04); IMM GRAN% 0.3 % (0.0-0.5); LYMPH# 0.95 X1000 (1.2-3.4); LYMPH% 8.7 % (20.5-51.1); MCH 28.7 PG (27-31); MCHC 31.7 g/dL (33-37); MCV 90.4 FL (81-99); MONO# 1.17 X1000 (0.11-0.59); MONO% 10.8 % (1.7-9.3); MPV 10.3 FL (7.4-10.4); NEUT# 8.47 X1000 (1.4-6.5); NEUT% 77.9 % (42.2-75.2); PLT 469 X1000 (130-400); RBC 5.12 XMIL (4.7-6.1); WBC 10.87 X1000 (4.8-10.8)
[2018-08-17 08:30] LABS: AGAP 11; BUN 12 mg/dL (8-22); CALCIUM 8.4 mg/dL (8.8-10.2); CHLORIDE 101 mmol/L (98-107); CHOLESTEROL 140 mg/dL (0-200); COSMO 285; CREATININE 0.7 mg/dL (0.7-1.2); ESTIMATED GFR > 60; GLUCOSE 130 mg/dL (70-104); HDL 37 mg/dL (35-55); LDL 80 mg/dL; POTASSIUM 3.9 mmol/L (3.5-5.1); SODIUM 142 mmol/L (136-145); TCO2 30 mmol/L (25-35); TRIGLYCERIDES 115 mg/dL (39-160); VLDL 23 mg/dL
[2018-08-17 09:14] LABS: EOS 2 % (1-10); LYMPHS 6 % (21-51); MONO 8 % (1-9); SEGS 84 % (42-75)
[2018-08-17] MEDS: PRINIVIL PO SCH (09:24)
[2018-08-17] MEDS: NAMENDA PO SCH ×2 (09:24→21:07)
[2018-08-17] MEDS: LOVENOX SUBQ SCH (09:26)
[2018-08-17] MEDS: ASPIRIN PO SCH (09:26)
--- NOTE | 2018-08-17 13:47 | CONSULTATION ---
DATE OF CONSULTATION: 08/17/2018 REASON FOR CONSULT: Altered mental status and dementia. HISTORY OF PRESENT ILLNESS: This is a 77-year-old male with reported dementia, remote stroke with residual right-sided hemiparesis, hypertension, and diabetes, as well as coronary disease. He was admitted yesterday due to some mild confusion along with coughing, nausea, and vomiting. History is from chart review as the patient is unable to provide a clear history and there family is not available. It was found that he had pneumonia and he is being treated for that. Apparently, the had noted that while he does have dementia, his confusion had been getting gradually worse over the last few evenings. He was found after taking his nap sitting on the side of the bed and had vomited on the floor. Per EMS, the patient's O2 sat was 86% on room air. Head CT on admission showed extensive chronic changes that are stable but no acute findings. The MRI yesterday showed just worsening chronic stroke burden but no acute findings, no evidence of restricted diffusion. PAST MEDICAL HISTORY: Remote stroke with residual right-sided hemiparesis, more prominent in the arm, dementia, coronary artery disease, hypertension, type 2 diabetes, coronary bypass. FAMILY HISTORY: Negative for coronary disease. SOCIAL HISTORY: He is a former smoker and there is a history of alcohol abuse in the past, no illicits. He is and lives with his . ALLERGIES: No known drug allergies listed. CURRENT MEDICATIONS: Include: Aspirin 325 mg daily, Lipitor 40 mg at night, ceftriaxone, memantine 5 mg p.o. b.i.d. REVIEW OF SYSTEMS: Balance of 12 was conducted and is otherwise negative except that detailed in the HPI. PHYSICAL EXAMINATION: Vital signs: He is currently afebrile. Blood pressure 120/66. Pulse 70s. Respirations 24. 96% on 3 liters nasal cannula. Mr. Hamm is supine on the bed, awake, alert, and attentive, in no acute distress. He is oriented to self. He chooses hospital with multiple choice. He says June but with clues he is able to correct to July. He is not otherwise oriented. He follows simple commands. Digit distinction intact. Left, right distinction I believe is intact although he is not able to follow complex command. He names eye glasses but does not name parts of the eyeglasses. He names a watch and parts of the watch. He repeats correctly. At one point he tries to answer a question but seems to not be able to correctly get words out. Pupils are equal, round, and reactive to bright light. Gaze conjugate, forward. Extraocular movements appear full. Face is symmetric with equal activation. Tongue is midline. Palpate elevates symmetrically. Shoulder shrug is full. He has a mild right hemiparesis, most effecting the right upper extremity in an upper motor neuron distribution. His sensory exam was difficult to disability liaison officer and was not consistent. Reflexes are diminished throughout and symmetric. No clonus. Plantar response was downgoing. [id number] was symmetric bilaterally. I did not test his gait. DIAGNOSTICS: As per above. MRI imaging was personally reviewed. EEG routine was also personally reviewed. It was abnormal due to mild generalized slowing but no epileptiform discharges and no seizures, impression clinical correlation. ASSESSMENT AND PLAN: 1. Dementia. Vascular dementia is likely to play a significant role. Cannot exclude mixed dementia with Alzheimer's disease. I do not have further information at this time. 2. Remote left hemisphere stroke with residual mild right hemiparesis and cannot definitely rule out language involvement. Stable. There is no evidence of acute stroke this admission. 3. Possible mild encephalopathy. If so, this may be multifactorial. Certainly , patient's with baseline dementia are predisposed to more protracted encephalopathy with any toxic metabolic or infectious disturbance. I am actually not certain that he is far off from his baseline, but his baseline is not known at this time. I would continue to provide supportive care and to treat his underling infection as you are doing. Continue stroke risk factor modification. It looks as though memantine may have been started this hospitalization, and I think that is reasonable to continue. Thank you for this consultation. cc: Brittney Alanis MD [facility]
--- NOTE | 2018-08-17 14:35 | PROGRESS NOTE ---
DATE: 08/17/2018 INTERVAL HISTORY: No acute events overnight. No new complaints. He remains fairly confused but awake, alert, cooperative. I discussed the case with Neurology who agrees with the addition of Namenda, but has no other recommendations at this time. Favor vascular dementia. Review of systems: 12 point review of systems negative except as per interval history. LABORATORY DATA: WBC 10.8. CBC, otherwise, unremarkable. Basic metabolic panel within normal limits aside from glucose 143. OBJECTIVE: Vital Signs: T-max 98.6, pulse 76, respirations 18, blood pressure 120/66, O2 saturation 94% on 2 L by nasal cannula. PHYSICAL EXAMINATION: General: No acute distress. Vital Signs: As above. HEENT: Normocephalic and atraumatic. Moist mucous membranes. No cervical adenopathy. Cardiovascular: Regular rate and rhythm. No murmurs, rubs, or gallops. Pulmonary: A few scattered rhonchi but largely clear to auscultation. Abdomen: Soft, nontender, nondistended. Bowel sounds positive. Extremities: Peripheral pulses intact. No clubbing, cyanosis, or edema. Neurologic: Cranial nerves grossly intact. Subtle right-sided weakness but, otherwise, no focal deficits. Psychiatric: Normal mood and affect. Awake, alert, but remains oriented to person only. Skin: No new rashes or lesions noted. ASSESSMENT AND PLAN: 1. Pneumonia. Bilateral lower lobe infiltrates noted on CT. Oxygenation improved. Symptoms minimal at this point. If oxygenation continues to improve, then may be able to discharge him in the next 1 to 2 days. We will continue antibiotics with Rocephin and azithromycin. 2. Metabolic encephalopathy. MRI with old stroke but no acute events. EEG with background slowing but no signs of seizure. Pneumonia may be related to underlying vascular dementia and acute infection with pneumonia as above. May be approaching baseline. 3. Diabetes mellitus. Reasonable control on current regimen. Continue to monitor glucose. 4. Coronary artery disease. Continue home aspirin. 5. Hypertension, reasonable control with home lisinopril. Continue to monitor. 6. Deep vein thrombosis prophylaxis; Lovenox. DISPOSITION: If oxygenation continues to improve, then may be able to go to rehab in the next 24 to 48 hours. [facility]
[2018-08-17] MEDS: ZITHROMAX 500 MG/NS 500 MG/250 ML IVPB IV SCH (15:14)
[2018-08-17] MEDS: MUCOMYST 20% INH SCH (19:44)
[2018-08-17] MEDS: LIPITOR PO SCH (21:07)
[2018-08-18] MEDS: ROCEPHIN 1 GM in NS 50 ML IV SCH (01:16)
[2018-08-18] MEDS: DUONEB (A & A) INH SCH ×6 (03:50→23:30)
[2018-08-18] MEDS: HUMULIN R SUBQ SCH ×4 (06:38→20:11)
[2018-08-18] MEDS: MUCOMYST 20% INH SCH ×2 (07:30→19:32)
[2018-08-18] MEDS: PROTONIX PO SCH (08:57)
[2018-08-18] MEDS: NAMENDA PO SCH ×2 (08:57→20:11)
[2018-08-18] MEDS: PRINIVIL PO SCH (08:57)
[2018-08-18] MEDS: LOVENOX SUBQ SCH (08:57)
[2018-08-18] MEDS: ASPIRIN PO SCH (08:57)
--- NOTE | 2018-08-18 13:47 | PROGRESS NOTE ---
DATE: 08/18/2018 SUBJECTIVE: Dr. Alanis saw Mr. Hamm for neurology evaluation yesterday. There is reported baseline dementia, old stroke with residual minimal right hemiparesis, possibly recent increased confusion. Memantine has been started this admission. I do not have history of prior cholinesterase inhibitor trial. Mr. Hamm told me he cannot tell me the name of his primary clinic, primary doctor, previous medicines. OBJECTIVE: Neurologic: He is awake, alert, attentive. His conversation was appropriate. He is not completely oriented. I did not test his cognitive function further. IMPRESSION: Baseline cognitive impairment, likely dementia/major neurocognitive disorder. If he has not previously had cholinesterase inhibitor trial, that can be considered but is not urgent. I would continue memantine and allow his primary clinic to titrate that. Nothing to add to Dr. Alanis's suggestions. Thanks for asking Neurology to see Mr. Hamm. cc: Dyana Quach III, MD
[2018-08-18] MEDS: ZITHROMAX 500 MG/NS 500 MG/250 ML IVPB IV SCH (15:13)
--- NOTE | 2018-08-18 19:11 | PROGRESS NOTE ---
DATE: 08/18/2018 OVERNIGHT: No acute events. His vitals are unremarkable. SUBJECTIVE: He is alert and oriented to himself. Answers and follows simple commands; however, does not remember the sequence of events leading to his hospital admission very clearly. Does not appear to be in acute distress. OBJECTIVE: Vital Signs: Temperature 98, pulse 65, blood pressure 128/69, saturating 96% on 2 L nasal cannula. PHYSICAL EXAMINATION: General: Does not appear in acute distress. Oral cavity is moist. Lungs: Air entry bilaterally equal. No wheeze, rhonchi or crackles. Cardiovascular: S1, S2 normal. No murmur or gallop. Abdomen: Soft, nontender. No lower extremity edema. Neurologic: Alert. He is oriented to himself. No obvious facial droop, no ptosis. Strength about 4/5 in bilateral upper and bilateral lower extremities. LABS: Suggestive of resolution of leukocytosis. Stable hemoglobin, hematocrit and electrolytes. Normal blood glucose level. ASSESSMENT AND PLAN: 1. Bilateral lower lobe pneumonia on CT scan. Continue intravenous ceftriaxone and azithromycin. The plan is to complete a 5-day course tomorrow. 2. Acute metabolic encephalopathy on baseline, likely vascular and Alzheimer dementia. MRI had detected chronic microvascular ischemic changes without any acute events. EEG had background slowing without any signs of seizure. Pneumonia could have contributed to it. Currently, it appears to be doing better. My plan is to get in touch with family tomorrow if his hematocrit appears to be at baseline, discharge him home. 3. Diabetes mellitus. Continue sliding scale insulin as tolerated. 4. Coronary artery disease, continue home aspirin. 5. Hypertension, reasonably controlled. Continue home lisinopril. 6. DVT prophylaxis. Lovenox. 7. Disposition: If he continues to feel better my plan is to send him home tomorrow with home PT, home OT. According to PT note yesterday, he was able to walk with some assistance. Plan of care was discussed with the patient. I will try and get in touch with family tomorrow. cc: Man Perla MD MTDD
[2018-08-18] MEDS: LIPITOR PO SCH (20:11)
[2018-08-19] MEDS: ROCEPHIN 1 GM in NS 50 ML IV SCH (00:48)
[2018-08-19] MEDS: DUONEB (A & A) INH SCH ×5 (03:20→19:07)
[2018-08-19] MEDS: HUMULIN R SUBQ SCH ×3 (05:59→16:31)
[2018-08-19] MEDS: PROTONIX PO SCH (06:11)
[2018-08-19] MEDS: MUCOMYST 20% INH SCH ×2 (07:30→19:07)
[2018-08-19] MEDS: ASPIRIN PO SCH (08:34)
[2018-08-19] MEDS: PRINIVIL PO SCH (08:34)
[2018-08-19] MEDS: NAMENDA PO SCH (08:34)
[2018-08-19] MEDS: LOVENOX SUBQ SCH (08:35)
[2018-08-19] MEDS ORDERED: LEVAQUIN PO SCH (13:45)
[2018-08-19 15:50] VITALS: BP 115/67
--- NOTE | 2018-08-19 17:33 | DISCHARGE SUMMARY ---
ADMISSION DATE: 08/15/2018 DISCHARGE DATE: DISCHARGE DIAGNOSIS: 1. Bilateral lower lobe pneumonia. 2. Acute metabolic encephalopathy. 3. Leukocytosis because of pneumonia. OTHER DIAGNOSIS: 1. Vascular and probably Alzheimer dementia. 2. History of essential hypertension. 3. History of diabetes mellitus type 2. 4. History of cerebrovascular accident. 5. Coronary artery disease. CONSULTATIONS: Neurology, Dr. Quach. DISCHARGE CONDITION: Stable. DISCHARGE DIET: Soft diabetic diet. DISCHARGE MEDICATIONS: Lisinopril 2.5 mg daily, atorvastatin 40 mg at nighttime , acetyl cystine 20% inhaled b.i.d., albuterol ipratropium routine q.4 hours, aspirin 325 mg daily, levofloxacin 750 mg daily for 3 days, memantine 5 mg b.i.d., pantoprazole 40 mg daily. VITALS AT THE TIME OF DISCHARGE: Temperature 98.1 degrees, pulse 72 per minute , respiratory rate 18 per minute, blood pressure 122/68, saturating 95% on room air. PHYSICAL EXAMINATION: General: He did not appear in acute distress. Oral cavity moist. Air entry bilaterally equal. No wheeze, rhonchi, crackles. S1, S2 normal. No murmur or gallop. Abdomen soft, nontender. No lower extremity edema. He was alert. He is was oriented to himself. No facial droop, no ptosis. Strength was about 4/5 bilateral upper and lower extremities. LABS: Initially he had leukocytosis of 15,000 which had improved to 10,000, at the time of discharge his electrolytes were within normal limit. He had normal kidney function with creatinine of 0.7. Microbiological data blood culture no growth to date. Influenza screen was negative. IMAGING: Chest x-ray on August 14 had suggested low lung volumes with cardiomegaly. Head CT on admission had extensive chronic changes without any definite acute intracranial pathology. Brain MRI had suggested worsening chronic stroke burden without any acute abnormalities. Chest CT on August 16 suggested bibasilar atelectasis and pneumonia. HISTORY OF PRESENT ILLNESS: Mr. Hamm is a 77-year-old man with history of dementia, CVA who was brought to the emergency department due to worsening mental status changes than his baseline. Patient was also coughing up and not feeling well. In the emergency department he was found to be a little confused. He was admitted for suspected pneumonia and acute encephalopathy. HOSPITAL COURSE PROBLEM: 1. Bilateral lower lobe pneumonia on CT scan. He was started on intravenous ceftriaxone, azithromycin which at the time of discharge changed to p.o. levofloxacin to complete 7 days course. 2. Acute metabolic encephalopathy on presentation was thought to be related to pneumonia. He did have imaging and clinical evidence of vascular Alzheimer dementia. EEG had background slowing without any signs of seizures. At the time of discharge he was alert but oriented only to himself, it was thought that was his baseline. 3. Diabetes mellitus. He was continued on sliding scale insulin. 4. Coronary artery disease. He was continued on home aspirin and atorvastatin for his hyperlipidemia. 5. For hypertension he was continued on home lisinopril. 6. Disposition. Patient will be discharged back to [facility]. More than 30 minute was spent discharging patient. I will call patient's to inform her about patient' s course and answer if she has any questions. cc: Man Perla MD MTDD
== END 2018-08-19 19:32 | DRG 871 ==
LOC: SUPCPDRO → ED 19:10 → 3N 08-15 00:35 → SUATTDRO 08-15 00:35
PROVIDERS: ATTEND Internal Medicine
CPT/HCPCS: 51701; 70450; 70551; 71010; 71045; 71260; 80048; 80053; 80061; 81001; 82140; 82805; 82948; 83036; 83880; 84439; 84443; 84484; 85025; 87040; 87275; 87276; 87804; 93005; 94640; 94760; 94761; 95816; 96365; 96366; 97162; 97530; 99285; A9270; J0456; J0696; J1650; J2543; J7030; J7608; P9612; Q9967; XXXXX

== ENCOUNTER 2019-07-28 14:58 | Inpatient (IN) ==
--- NOTE | 2019-07-28 16:09 | Diag Imaging Result Doc PS360 ---
EXAM: CHEST-1 VIEW 07/28/2019 HISTORY: AMS, cough TECHNIQUE: AP chest at 1558 COMMENT: There are sternotomy wires. There is ill-defined opacity in the left lower lobe which was not present on 08/14/2018. Otherwise are has been no significant change. IMPRESSION: Left lower lobe pneumonia. Electronically signed by Guanaco Alcantar 07/28/2019 4:07 PM
[2019-07-28 16:17] LABS: BASO# 0.09 X1000 (0.0-0.2); BASO% 0.4 % (0.0-0.8); EOS# 0.05 X1000 (0.0-0.7); EOS% 0.2 % (0.0-10.0); HEMATOCRIT 50.9 % (42.0-52.0); HEMOGLOBIN 16.2 g/dL (14.0-18.0); IMM GRAN# 0.11 X1000 (0.0-0.04); IMM GRAN% 0.5 % (0.0-0.5); LYMPH# 1.07 X1000 (1.2-3.4); LYMPH% 4.5 % (20.5-51.1); MCH 28.1 PG (27-31); MCHC 31.8 g/dL (33-37); MCV 88.2 FL (81-99); MONO# 1.42 X1000 (0.11-0.59); MPV 9.9 FL (7.4-10.4); NEUT# 21.11 X1000 (1.4-6.5); NEUT% 88.4 % (42.2-75.2); PLT 715 X1000 (130-400); RBC 5.77 XMIL (4.7-6.1); RDW 16.3 % (11.5-14.5); WBC 23.85 X1000 (4.8-10.8)
--- NOTE | 2019-07-28 16:18 | Diag Imaging Result Doc PS360 ---
EXAM: CT HEAD W/O CONTRAST 07/28/2019 HISTORY: AMS TECHNIQUE: This exam was performed using automated exposure control, adjustment of mA or kV according to patient size, and/or use of iterative reconstruction technique. COMMENT: There is patchy encephalomalacia present particularly in the left frontal and parietal lobes. These findings were also present on 08/14/2018. There is no evidence of bleed or abnormal extra-axial fluid collection. The visualized paranasal sinuses are clear. The calvarium is intact. IMPRESSION: Extensive chronic ischemic changes. No evidence of acute intracranial disease. Electronically signed by Guanaco Alcantar 07/28/2019 4:16 PM
[2019-07-28] MEDS ORDERED: NS 1,000 ML IV ONE ×2 (16:22)
[2019-07-28] MEDS ORDERED: ROCEPHIN 1 GM in NS 50 ML IV ONE (16:23)
[2019-07-28] MEDS ORDERED: ZITHROMAX 500 MG/NS 500 MG/250 ML IVPB IV ONE (16:23)
--- NOTE | 2019-07-28 16:24 | PROVIDER DOCUMENTATION ---
This chart was entered by Melanie Peres Scribe, acting as scribe for Veronica Resendez MD. HPI-General Adult - General Chief Complaint: Altered Mental Status Stated Complaint: AMS Time Seen by Provider: 07/28/19 15:04 Source: patient, EMS Allergies/Adverse Reactions: Patient Allergies Allergy/AdvReac Type Severity Reaction Status Date / Time No Known Allergies Allergy Verified 05/29/19 11:08 Home Medications: Home Medication List Medication Instructions Recorded Confirmed Last Taken Type LISINOpril [Prinivil] 2.5 mg PO DAILY 08/27/15 08/14/18 08/14/18 07:00 History Pantoprazole [Protonix] 40 mg PO DAILY@0700 tablet 06/03/17 08/14/18 08/14/18 07:00 Rx ATORVAstatin [Lipitor] 40 mg PO QHS tablet 08/19/18 Unknown Rx Acetylcysteine 20% [Mucomyst 20%] 3 ml INH RTBID vial 08/19/18 Unknown Rx Albuterol 2.5MG/Ipratrop 0.5MG 3 ml INH RTQ4H neb 08/19/18 Unknown Rx [Duoneb (A & A)] Aspirin 325 mg PO DAILY tablet 08/19/18 Unknown Rx Levofloxacin [Levaquin] 750 mg PO DAILY 3 Days #3 tablet 08/19/18 Unknown Rx Memantine [Namenda] 5 mg PO BID tablet 08/19/18 Unknown Rx Ciprofloxacin HCl [Cipro] 500 mg PO Q12H #20 tab 05/29/19 Unknown Rx Lorazepam [Ativan] 1 tab PO QHS PRN 05/29/19 05/29/19 Unknown History - History of Present Illness -Gen Adult Nature of Presenting Problems: 78 y/o male presents to ED with AMS onset this morning. of pt reports he was sitting in a chair and this is abnormal with him. Pt has hx CVA. Home health wanted him to come to ED for possible TIA and UTI, L great toe pain, and cough. Pt denies any pain or urinary symptoms. Pt is alert and nontoxic. Location of Pain/Injury: reports: none Pain Radiation: reports: no radiation Quality of Pain: reports: none Severity: reports: mild Onset/Duration: reports: this morning Timing: reports: still present Context/Activities at Onset: reports: none Modifying Factors: improves with: nothing Associated Symptoms: reports: cough, other (AMS; foul smelling urine; L great toe pain) Similar Symptoms Previously?: No Recently seen or treated by another doctor?: No Review of Systems - Adult - REVIEW OF SYSTEMS - ADULT ROS:: ROS per family Constitutional: reports: other (AMS). denies: chills, fever Eyes: reports: no symptoms reported Ears, Nose, Mouth & Throat: reports: no symptoms reported Cardiovascular: denies: chest pain, palpitations Respiratory: reports: cough. denies: shortness of breath Gastrointestinal: reports: no symptoms reported Genitourinary: reports: other (foul smelling urine). denies: incontinence Musculoskeletal: reports: other (L great toe pain). denies: back pain, joint pain Integumentary: reports: no symptoms reported Neurological: reports: other (AMS). denies: dizziness/vertigo, seizure Psychiatric: reports: no symptoms reported Endocrine: reports: no symptoms reported Hematologic/Lymphatic: reports: no symptoms reported Allergic/Immunologic: reports: no symptoms reported All Other Systems: Reviewed and Negative Past History - Adult - PAST MEDICAL HISTORY-ADULT Review of Records: reports: Old Records Reviewed, Nursing Assessment Review, Medications Reviewed Major Childhood Illnesses: reports: denies history Cardiovascular: reports: CAD, HTN, hyperlipidemia, NM Respiratory: reports: COPD Gastrointestinal: reports: pancreatitis Genitourinary: reports: cancer (bladder), other (bladder ca, BPH) Neurological: reports: CVA, dementia Endocrine/Immune: reports: Diabetes - PRIOR SURGERIES/PROCEDURES Surgical/Procedure History: reports: CABG, other (urinary stents; L carotid) - IMMUNIZATION STATUS Childhood Immunizations: See Nurse Assessment Flu Vaccine: See Nurse Assessment - FAMILY HISTORY Family History: reviewed, not pertinent - SOCIAL HISTORY Smoking: quit less than 1 year Substance Use: none/never Alcohol Use Frequency: never Living Situation: family Physical Exam-General - PHYSICAL EXAM-ADULT Initial Vital Signs Reviewed: Yes - CONSTITUTIONAL General Appearance: appears well, alert, no apparent distress - EYES Eyes: PERRL/EOMI - HEAD, EARS, NOSE, MOUTH & THROAT HENMT: normocephalic/atraumatic, moist mucous membranes, normal ENT inspection - NECK Neck: non-tender, full range of motion - RESPIRATORY Respiratory: chest non-tender, no respiratory distress, no accessory muscle use, crackles - CARDIOVASCULAR Cardiovascular: normal peripheral pulses, regular rate, rhythm - GASTROINTESTINAL (ABDOMEN) Abdominal Exam: normal bowel sounds, non tender, soft - MUSCULOSKELETAL Back Exam: normal inspection, no vertebral tenderness Extremity: tenderness (L medial foot and 1st digit of L foot) - SKIN Integumentary: normal color, warm/dry - NEUROLOGIC Neurologic: grossly normal - PSYCHIATRIC Psych/Mental Status: normal mood/affect Progress - PLAN OF CARE/RESULTS Progress/Plan/Lab Results: Vital Signs - 8 hr 07/28/19 15:13 Temperature 99.7 F H Pulse Rate 70 Respiratory Rate 22 Blood Pressure 139/70 O2 Sat by Pulse Oximetry 92 L Orders Category Date Time Status CHEST-1 VIEW [RAD] Stat Exams 07/28/19 15:[address] HEAD W/O CONTRAST [CT] Stat Exams 07/28/19 15:35 Completed BLOOD CULTURE [BLDCUL] Stat Lab 07/28/19 15:52 Ordered CBC WITH ELECTRONIC DIFF [HEME] Stat Lab 07/28/19 15:52 Completed COMPREHENSIVE METABOLIC PANEL [CHEM] Stat Lab 07/28/19 15:52 Received LACTATE, PLASMA [CHEM] Stat Lab 07/28/19 16:21 Uncollected PRO B-NATRIURETIC PEPTIDE Stat Lab 07/28/19 15:52 Received PROTIME WITH INR [COAG] Stat Lab 07/28/19 15:52 Received PTT [COAG] Stat Lab 07/28/19 15:52 Received TROPONIN T Stat Lab 07/28/19 15:52 Received URINALYSIS W/POSS RFLX CULT [URINALYSIS] Stat Lab 07/28/19 15:44 Uncollected 0.9% Sodium Chloride Inj [Ns] 1,000 ml Med 07/28/19 16:22 Active IV 999 mls/hr 0.9% Sodium Chloride Inj [Ns] 1,000 ml Med 07/28/19 16:22 Active IV 999 mls/hr Azithromycin 500 mg/Ns [Zithromax 500 mg/Ns] Med 07/28/19 16:23 Active 500 mg in 250 ml IV NOW CefTRIAXONE [Rocephin] 1 gm Med 07/28/19 16:23 Active 0.9% Sodium Chloride Inj [Ns] 50 ml IV NOW Laboratory Tests 07/28/19 07/28/19 07/28/19 15:52 15:52 15:52 WBC 23.85 H RBC 5.77 Hgb 16.2 Hct 50.9 MCV 88.2 MCH 28.1 MCHC 31.8 L RDW Std Deviation 16.3 H Plt Count 715 H MPV 9.9 Immature Gran % (Auto) 0.5 Neut % (Auto) 88.4 H Lymph % (Auto) 4.5 L Norman % (Auto) 6.0 Eos % (Auto) 0.2 Baso % (Auto) 0.4 Immature Gran # (Auto) 0.11 H Neut # (Auto) 21.11 H Lymph # (Auto) 1.07 L Norman # (Auto) 1.42 H Eos # (Auto) 0.05 Baso # (Auto) 0.09 PT INR PTT (Actin FS) Sodium 141 Potassium 5.1 Chloride 99 Carbon Dioxide 29 Anion Gap 13 BUN 14 Creatinine 0.9 Estimated GFR/1.73 m2 > 60 BUN/Creatinine Ratio 16 Glucose 115 H Calculated Osmolality 283 Calcium 9.4 Total Bilirubin 0.82 AST 18 ALT 21 Alkaline Phosphatase 62 Creatine Kinase Troponin T Vyq-Q-Mkkbwospezb Pept 1241 H Total Protein 6.6 Albumin 3.7 Globulin 2.9 Albumin/Globulin Ratio 1.3 Plasma Lactate Urine Source Urine Color Urine Turbidity Urine pH Ur Specific [place] Urine Protein Ur Glucose (Stick) Ur Ketones (Stick) Urine Blood Urine Nitrite Urine Bilirubin Urobilinogen Dipstick Urine Leukocytes Urine WBC (Auto) Urine RBC (Auto) U Epithel Cells (Auto) Urine Bacteria (Auto) 07/28/19 07/28/19 07/28/19 15:52 15:52 15:52 WBC RBC Hgb Hct MCV MCH MCHC RDW Std Deviation Plt Count MPV Immature Gran % (Auto) Neut % (Auto) Lymph % (Auto) Norman % (Auto) Eos % (Auto) Baso % (Auto) Immature Gran # (Auto) Neut # (Auto) Lymph # (Auto) Norman # (Auto) Eos # (Auto) Baso # (Auto) PT 15.4 INR 1.20 PTT (Actin FS) 39.4 Sodium Potassium Chloride Carbon Dioxide Anion Gap BUN Creatinine Estimated GFR/1.73 m2 BUN/Creatinine Ratio Glucose Calculated Osmolality Calcium Total Bilirubin AST ALT Alkaline Phosphatase Creatine Kinase Troponin T < 0.010 Elw-G-Ildnymvhfum Pept Total Protein Albumin Globulin Albumin/Globulin Ratio Plasma Lactate 2.0 Urine Source Urine Color Urine Turbidity Urine pH Ur Specific [place] Urine Protein Ur Glucose (Stick) Ur Ketones (Stick) Urine Blood Urine Nitrite Urine Bilirubin Urobilinogen Dipstick Urine Leukocytes Urine WBC (Auto) Urine RBC (Auto) U Epithel Cells (Auto) Urine Bacteria (Auto) 07/28/19 07/28/19 15:52 16:27 WBC RBC Hgb Hct MCV MCH MCHC RDW Std Deviation Plt Count MPV Immature Gran % (Auto) Neut % (Auto) Lymph % (Auto) Norman % (Auto) Eos % (Auto) Baso % (Auto) Immature Gran # (Auto) Neut # (Auto) Lymph # (Auto) Norman # (Auto) Eos # (Auto) Baso # (Auto) PT INR PTT (Actin FS) Sodium Potassium Chloride Carbon Dioxide Anion Gap BUN Creatinine Estimated GFR/1.73 m2 BUN/Creatinine Ratio Glucose Calculated Osmolality Calcium Total Bilirubin AST ALT Alkaline Phosphatase Creatine Kinase 34 Troponin T Ugj-M-Hddshsohbfi Pept Total Protein Albumin Globulin Albumin/Globulin Ratio Plasma Lactate Urine Source CATH Urine Color YELLOW Urine Turbidity CLEAR Urine pH 5.5 Ur Specific [place] 1.028 Urine Protein 100 A Ur Glucose (Stick) NEGATIVE Ur Ketones (Stick) NEGATIVE Urine Blood MODERATE A Urine Nitrite NEGATIVE Urine Bilirubin NEGATIVE Urobilinogen Dipstick 2 A Urine Leukocytes NEGATIVE Urine WBC (Auto) <10 Urine RBC (Auto) 20-40 A U Epithel Cells (Auto) <10 Urine Bacteria (Auto) NEGATIVE of pt at bedside. She reports pt woke up this morning and had difficulty walking to the bathroom. She states he usually can go to the bathroom by himself. states he was very weak and was having trouble even just holding his coffee cup. Result Diagrams: 07/28/19 15:52 07/28/19 15:52 - EKG 1 Time of EKG reading by physician:: 15:45 EKG Read and Signed by:: Veronica Resendez EKG Interpretation (*Must complete 3 of following elements*): Abnormal Rate: 67 Rhythm: NSR QRS: RBB ST Wave: non-specific ST changes - XRAY 1 XRAY Study: Chest Impression: See EMR Report ([facility] - [address], [address], [place] [address] [facility] - [address] [place] [address] Department of Imaging Patient: LO GARCIA Date: 07/28/19MR#: [id number] : 1940ADM Status: REG ERAcct#: [id number] Age/Sex: 78/MRoom/Bed: Loc: ED Ordering Physician: Renetta Resendez MD Family Physician: Verna Painter MD Reason for Procedure: AMS, cough Signed EXAM: CHEST-1 VIEW 07/28/2019 HISTORY: AMS, cough TECHNIQUE: AP chest at 1558 COMMENT: There are sternotomy wires. There is ill-defined opacity in the left lower lobe which was not present on 08/14/2018. Otherwise are has been no significant change. IMPRESSION: Left lower lobe pneumonia. Electronically signed by Guanaco Alcantar 07/28/2019 4:07 PM 07/28/19 1607 Interpreting Physician: Guanaco Alcantar MD Dictated Date/Time: 07/28/19 1606 cc: Veronica Resendez MD; Verna Painter MD) - CT/MRI 1 CT Study: Head Impression: See EMR Report ([facility] - [address] [place] [address], [address], [place] [id number] [facility] - [address] [place] [address] Department of Imaging Patient: LO GARCIA Date: 07/28/19MR#: [id number] : 1940ADM Status: REG ERAcct#: [id number] Age/Sex: 78/MRoom/Bed: Loc: ED Ordering Physician: Veronica Resendez MD Family Physician: Verna Painter MD Reason for Procedure: AMS Signed EXAM: CT HEAD W/O CONTRAST 07/28/2019 HISTORY: AMS TECHNIQUE: This exam was performed using automated exposure control, adjustment of mA or kV according to patient size, and/or use of iterative reconstruction technique. COMMENT: There is patchy encephalomalacia present particularly in the left frontal and parietal lobes. These findings were also present on 08/14/2018. There is no evidence of bleed or abnormal extra-axial fluid collection. The visualized paranasal sinuses are clear. The calvarium is intact. IMPRESSION: Extensive chronic ischemic changes. No evidence of acute intracranial disease. Electronically signed by Guanaco Alcantar 07/28/2019 4:16 PM 07/28/19 1616 Interpreting Physician: Guanaco Alcantar MD Dictated Date/Time: 07/28/19 1614 cc: Veronica Resendez MD; Verna Painter MD) - CONSULTS/PCP/HOSPITALIST Notification #1 *Consult/PCP/Hospitalist*: Hospitalist Time Discussed: 17:56 Consult Disposition: Admit Departure - Departure Date of Disposition Decision: 07/28/19 Time of Disposition Decision: 17:56 DIAGNOSIS: Pneumonia, Altered mental state, Cellulitis of left foot Disposition: ADMITTED INPATIENT 09 Certified Medical Emergency: Emergent Condition: Stable Referrals and Follow-Ups: Verna Painter MD [Primary Care Provider] - - Critical Care Note This patient required my direct & personal management of CC.: No Attestation - Physician/ ANTWAN Attestation Patient care was provided by Advanced Practice Provider:: No The physician spent face to face time with patient:: Yes Advanced Practice Provider documentation review:: Supervising physician onsite and consulted in the evaluation and care of this patient. The physician did have a face to face encounter with the patient. This chart was documented by the indicated scribe, (Melanie Peres, Hanna) and accurately reflects the services I performed and decisions made by me, Veronica Resendez MD, as attested by the provider's signature.
[2019-07-28 16:31] LABS: INR 1.2; PROTIME 15.4 Seconds (11.0-16.0)
[2019-07-28 16:32] LABS: PTT 39.4 Seconds (22.3-41.8)
[2019-07-28 16:33] LABS: AGAP 13; ALB/GLOB RATIO 1.3; ALBUMIN 3.7 g/dL (3.5-5.0); ALKALINE PHOSPHATASE 62 U/L (32-122); BUN 14 mg/dL (8-22); CALCIUM 9.4 mg/dL (8.8-10.2); CHLORIDE 99 mmol/L (98-107); COSMO 283; CREATININE 0.9 mg/dL (0.7-1.2); ESTIMATED GFR > 60; GLUCOSE 115 mg/dL (70-104); GOT 18 U/L (10-34); GPT 21 U/L (10-44); POTASSIUM 5.1 mmol/L (3.5-5.1); SODIUM 141 mmol/L (136-145); TCO2 29 mmol/L (25-35); TOTAL BILIRUBIN 0.82 mg/dL (0.20-1.00); TOTAL PROTEIN 6.6 g/dL (6.3-8.3)
[2019-07-28 16:42] LABS: URINE SOURCE CATH
[2019-07-28 16:55] LABS: BILIRUBIN URINE NEGATIVE (NEGATIVE); BLOOD URINE MODERATE (NEGATIVE); COLOR YELLOW; GLUCOSE URINE NEGATIVE (NEGATIVE); KETONE URINE NEGATIVE (NEGATIVE); LEUKOCYTES URINE NEGATIVE (NEGATIVE); NITRITE URINE NEGATIVE (NEGATIVE); PH URINE 5.5; PROTEIN URINE 100 mg/dL (NEGATIVE); SP GRAVITY URINE 1.028; TURBIDITY URINE CLEAR (CLEAR); UROBILINOGEN URINE 2 mg/dL (NORMAL)
[2019-07-28 16:59] LABS: UR EPITHELIAL CELLS <10 /HPF (<10); URINE BACTERIA NEGATIVE /HPF; URINE RBC 20-40 /HPF (<10); URINE WBC <10 /HPF (<10)
[2019-07-28] MEDS: MUCOMYST 20% INH SCH (19:30)
--- NOTE | 2019-07-28 19:41 | HISTORY AND PHYSICAL ---
HISTORY OF PRESENT ILLNESS: Mr. Hamm is a 78-year-old. His takes care of him. He has alcohol-related dementia. He wears Depends. This morning at about 5:50 in the morning, he was sitting up in the den and she was trying to get him to go, and she got him changed and changed his Depends, but he just was not acting right, his mental status had changed, seemed to be more weak than usual, and so she brought him to the emergency room where they did find lobar pneumonia. His doctor is Dr. Painter. PAST MEDICAL HISTORY: He has had a couple of CVAs, but had a severe right-sided deficit. He has diabetes mellitus type 2, hypertension, history of alcohol-related dementia. He is able to walk with assistance and help, but predominantly in the bed. Last time he was here was on 08/15/2018. He has had, I think, urinary tract infections in the past. His seems to think that he has bladder cancer, but he is not following anybody. I do not see this documented on old records. He apparently has had ureteral stents placed in the past. He has a history of coronary artery disease. She is not aware if he has had stents placed. ALLERGIES: No known drug allergies. SOCIAL HISTORY: Former smoker. History of heavy alcohol use. No history of recent alcohol intake and no history of illicit drug use. FAMILY HISTORY: Positive for coronary artery disease. REVIEW OF SYSTEMS: General: Given by the . No weight gain or loss. No fever or chills. No change in visual or hearing acuity. No complaints of chest pain or tachy palpitations. No trouble with breathing, cough, or pleuritic pain. Gastrointestinal/Genitourinary: No gross hematuria or dysuria. No change in his bowels. He wears Depends. He has urinary incontinence. Musculoskeletal/Neurologic: No significant changes, but his mental status, he seems to be slower. No skin rashes appreciated. She did comment on his left toes, that sometimes they look kind of dusky and seem to be a little more swollen in the left first metatarsal. She is not aware of history of gout. PHYSICAL EXAMINATION: VITAL SIGNS: Temperature 99.2 degrees, pulse 75, respirations 28, blood pressure 141/80. HEENT: Pupils are equal and round. Oral and nasal mucosa without any lesions. Conjunctivae pink. Sclerae clear. He has some eczema on the lower chin and face, and some patches of eczema on his skin as well. CVP less than 6 cm from right atrium. CARDIOVASCULAR: Regular rhythm and rate without murmur or S3. PMI nondisplaced. ABDOMEN: Soft. RESPIRATORY: Lungs are clear anterolaterally, all lung jones. No wheezing. Carotid, radial, and femoral pulses 2+ and symmetrical. ABDOMEN: Soft, nondistended. He has trace edema from the ankle to the mid morrell on both legs. SKIN: Without rashes. Otherwise, no oral or nasal mucosa lesions. LABORATORY AND DIAGNOSTIC DATA: White count 23,850, hematocrit 50, platelet count 715,000. Sodium 141, potassium 5.1, chloride 99, BUN 14, creatinine 0.9, blood sugar 115. AST 18, ALT 21, alkaline phosphatase 62, albumin is 3.7. ProTime is 15.4. PTT is 39. Head CT without contrast shows extensive chronic ischemic changes. No evidence of acute intracranial disease. Chest x- ray, left lower lobe pneumonia and infiltrate. ASSESSMENT AND PLAN: 1. Community-acquired left lower lobe pneumonia. We will treat him with ceftriaxone given 2 g IV q.24 hours, and we will give him some bronchodilators using DuoNeb q.4 hours while awake. We will give him guaifenesin ER 1200 mg p.o. twice a day and some supplementary O2. 2. Hypercholesterolemia. Continue his Lipitor 40 mg a day. 3. His made mention of some type of bladder tumor. I am not sure I understand. I will try and explore, and get some records on that. 4. Alcohol-related dementia with Wernicke's features. We will continue his daily dose of Ativan as needed. He is on Namenda 5 mg b.i.d. 5. He has had a cerebrovascular accident and he is incontinent of urine. His is his main caregiver. We will check his thyroid, B12, and folate, and follow his electrolytes. His renal function looks good. His nutrition looks like it is pretty good, too. So, I guess we will put him on a regular diet. cc: Candelario Otoole MD
[2019-07-28] MEDS: DUONEB (A & A) INH SCH ×2 (20:12→22:41)
[2019-07-28] MEDS: HUMULIN R SUBQ SCH (21:00)
[2019-07-28] MEDS: NAMENDA PO SCH (21:00)
[2019-07-28] MEDS ORDERED: DUONEB (A & A) INH SCH (22:00)
[2019-07-29] MEDS: LIPITOR PO SCH ×2 (02:33→21:54)
[2019-07-29] MEDS: MUCINEX PO SCH ×3 (03:39→21:54)
[2019-07-29 06:03] LABS: BASO# 0.07 X1000 (0.0-0.2); BASO% 0.5 % (0.0-0.8); EOS# 0.14 X1000 (0.0-0.7); EOS% 0.9 % (0.0-10.0); HEMATOCRIT 46.1 % (42.0-52.0); HEMOGLOBIN 14.7 g/dL (14.0-18.0); IMM GRAN# 0.06 X1000 (0.0-0.04); IMM GRAN% 0.4 % (0.0-0.5); LYMPH% 10.4 % (20.5-51.1); MCH 28.5 PG (27-31); MCHC 31.9 g/dL (33-37); MCV 89.5 FL (81-99); MONO# 1.04 X1000 (0.11-0.59); MONO% 6.8 % (1.7-9.3); MPV 9.8 FL (7.4-10.4); NEUT# 12.49 X1000 (1.4-6.5); PLT 571 X1000 (130-400); RBC 5.15 XMIL (4.7-6.1); RDW 16.3 % (11.5-14.5)
[2019-07-29 06:13] LABS: HEMOGLOBIN A1C 7.1 % (4.8-6.0)
[2019-07-29] MEDS: HUMULIN R SUBQ SCH ×4 (06:50→21:39)
[2019-07-29] MEDS: PROTONIX PO SCH (06:53)
[2019-07-29 07:08] LABS: AGAP 9; ALB/GLOB RATIO 1.2; ALBUMIN 3.4 g/dL (3.5-5.0); ALKALINE PHOSPHATASE 53 U/L (32-122); BUN 11 mg/dL (8-22); CALCIUM 8.1 mg/dL (8.8-10.2); CHLORIDE 101 mmol/L (98-107); COSMO 276; CREATININE 0.7 mg/dL (0.7-1.2); ESTIMATED GFR > 60; GLUCOSE 124 mg/dL (70-104); GOT 14 U/L (10-34); GPT 15 U/L (10-44); SODIUM 138 mmol/L (136-145); TCO2 28 mmol/L (25-35); TOTAL BILIRUBIN 0.89 mg/dL (0.20-1.00); TOTAL PROTEIN 6.3 g/dL (6.3-8.3)
[2019-07-29 07:47] LABS: FREE T4 1.14 ng/dL (0.93-1.70); TSH 1.2 uIUmL (0.27-4.20)
[2019-07-29] MEDS: PRINIVIL PO SCH (08:27)
[2019-07-29] MEDS: NAMENDA PO SCH ×2 (08:28→21:54)
[2019-07-29] MEDS: ASPIRIN PO SCH (08:28)
--- NOTE | 2019-07-29 10:48 | Diag Imaging Result Doc PS360 ---
EXAM: CHEST-2 VIEWS 07/29/2019 HISTORY: Pneumonia TECHNIQUE: Two views the chest COMMENT: There is increased density in the retrocardiac portion of the left lower lobe compared to 07/28/2019. IMPRESSION: Worsened pneumonia left lower lobe. Electronically signed by Guanaco Alcantar 07/29/2019 10:46 AM
[2019-07-29] MEDS: MUCOMYST 20% INH SCH ×2 (11:42→19:59)
[2019-07-29] MEDS ORDERED: LOTRISONE TOP SCH (13:15)
--- NOTE | 2019-07-29 13:21 | PROGRESS NOTE ---
DATE: 07/29/2019 Mr. Hamm looks better. He is awake and color looks better. He has been able to eat some and his breathing is comfortable. His scrotum is a little bit tender and it appears like he has some epididymitis. No real swelling. General erythema around the scrotum. Temperature 98.5 degrees, pulse 60, respirations 17, blood pressure 113/53. Pupils are equal and round. Lungs are clear in all lung jones. Cardiovascular examination regular rhythm and rate without murmur or S3. Abdomen is soft. Skin is warm and dry. Urine output was a little over 1 L. Chest x-ray, worsening pneumonia, left lower lobe. ASSESSMENT AND PLAN: 1. Left lower lobe pneumonia and lobar pneumonia. Continue present antibiotics and bronchodilators. 2. has a history of either kidney cancer or bladder cancer, not sure which and is requesting a urologist. I will wait till Wednesday and see if I can get urology to look over, find out more about her history. 3. Alcohol-related dementia. Wernicke's features. He is more alert and able today. 4. He has been weak, not able to walk and so we will get physical therapy to evaluate, but he probably will need to go to rehab. cc: Candelario Otoole MD
[2019-07-29] MEDS ORDERED: LOTRISONE CREAM TOP SCH (14:40)
[2019-07-29] MEDS: M.V.I.-12 10 ML, FOLIC ACID 1 MG, MAGNESIUM SULFATE 1 GM, THIAMINE 100 MG in NS 1,000 ML IV SCH (15:19)
--- NOTE | 2019-07-29 16:40 | PROGRESS NOTE ---
DATE: 07/29/2019 ADDENDUM: His was not happy that I did not get Urology involved. She wanted to have a different doctor. She felt like I had told her that we are only going to treat the pneumonia. I set came and sat down, talked to her. Nurse was accompanying me and I explained to her that if she would like a urology consult, we would try and do that, but I did not feel like any test would be performed until his pneumonia was better. I did order some cream for his scrotum. There is some question on what kind of history he had, whether he had kidney cancer or bladder cancer in the past. She made mention that she thought she remembered him having stents placed. Thus, I did consult Dr. Hernandez. We will continue treatment with pneumonia. She seemed to be satisfied with that response. cc: Candelario Otoole MD
[2019-07-29] MEDS: ROCEPHIN 1 GM in NS 50 ML IV SCH (17:41)
[2019-07-29] MEDS ORDERED: ATIVAN PO PRN (21:00)
[2019-07-30] MEDS: HUMULIN R SUBQ SCH ×3 (06:12→15:26)
[2019-07-30] MEDS: PROTONIX PO SCH (06:15)
[2019-07-30 07:06] LABS: BASO# 0.09 X1000 (0.0-0.2); BASO% 0.7 % (0.0-0.8); EOS# 0.29 X1000 (0.0-0.7); EOS% 2.3 % (0.0-10.0); HEMOGLOBIN 14.4 g/dL (14.0-18.0); IMM GRAN# 0.07 X1000 (0.0-0.04); IMM GRAN% 0.5 % (0.0-0.5); LYMPH# 1.13 X1000 (1.2-3.4); LYMPH% 8.8 % (20.5-51.1); MCH 28.1 PG (27-31); MCHC 30.6 g/dL (33-37); MCV 91.6 FL (81-99); MONO# 0.89 X1000 (0.11-0.59); MONO% 6.9 % (1.7-9.3); NEUT# 10.38 X1000 (1.4-6.5); NEUT% 80.8 % (42.2-75.2); PLT 619 X1000 (130-400); RBC 5.13 XMIL (4.7-6.1); RDW 16.5 % (11.5-14.5); WBC 12.85 X1000 (4.8-10.8)
[2019-07-30 07:12] LABS: AGAP 7; ALBUMIN 3.2 g/dL (3.5-5.0); ALKALINE PHOSPHATASE 54 U/L (32-122); BUN 14 mg/dL (8-22); CALCIUM 7.9 mg/dL (8.8-10.2); CHLORIDE 101 mmol/L (98-107); COSMO 274; CREATININE 0.7 mg/dL (0.7-1.2); ESTIMATED GFR > 60; GLUCOSE 130 mg/dL (70-104); GOT 21 U/L (10-34); GPT 17 U/L (10-44); POTASSIUM 4.8 mmol/L (3.5-5.1); SODIUM 136 mmol/L (136-145); TCO2 28 mmol/L (25-35); TOTAL BILIRUBIN 0.34 mg/dL (0.20-1.00); TOTAL PROTEIN 6.4 g/dL (6.3-8.3)
[2019-07-30] MEDS: MUCINEX PO SCH ×2 (08:16→21:11)
[2019-07-30] MEDS: M.V.I.-12 10 ML, FOLIC ACID 1 MG, MAGNESIUM SULFATE 1 GM, THIAMINE 100 MG in NS 1,000 ML IV SCH (08:16)
[2019-07-30] MEDS: NAMENDA PO SCH ×2 (08:16→21:11)
[2019-07-30] MEDS: ASPIRIN PO SCH (08:17)
[2019-07-30] MEDS: PRINIVIL PO SCH (08:17)
[2019-07-30] MEDS: DUONEB (A & A) INH PRN ×2 (08:30→19:56)
[2019-07-30] MEDS: MUCOMYST 20% INH SCH ×2 (08:30→19:56)
[2019-07-30 11:37] LABS: LYMPHS 6 % (21-51); MONO 6 % (1-9); SEGS 88 % (42-75)
--- NOTE | 2019-07-30 15:56 | PROGRESS NOTE ---
DATE: 07/30/2019 SUBJECTIVE: Mr. Hamm is a 78-year-old. He is feels better. He is awake and alert. Feels stronger. OBJECTIVE: Temperature 98.7 degrees, pulse 60, respirations 20, blood pressure 123/60. Pupils are equal. No distended neck veins. Lungs are clear in all lung jones. Cardiovascular Examination: Regular rhythm and rate without murmur or S3. No pedal edema. He states his scrotum is not as tender. His urine output was 3600 mL. ASSESSMENT AND PLAN: 1. Left lower lobar pneumonia, improving clinically. Continue his antibiotics and bronchodilators. He is doing much better. He is much stronger. 2. concerned about history and she is not sure whether he had kidney cancer or bladder cancer. She was worried about him seeing a urologist and was insistent that we pursue that workup. 3. Alcohol-related dementia. He seems to be less lethargic and more alert today. 4. General weakness and deconditioning. 5. Diabetes. His blood sugars appear very well-controlled. REVIEWED HIS ORDERS: Continue ceftriaxone 1 g q.24 hours. We will repeat another chest x-ray tomorrow. His lab from today, white count is down to 12,850, hematocrit is 47, platelet count is 619,000. Chemistries: Sodium 136, potassium 4.3, chloride 101, BUN 14, creatinine 0.7. We will get a chest x-ray in the morning. cc: Candelario Otoole MD
[2019-07-30] MEDS: LIPITOR PO SCH (21:11)
--- NOTE | 2019-07-30 21:23 | CONSULTATION ---
DATE OF CONSULTATION: 07/30/2019 CONSULTING PHYSICIAN: Candelario Otoole MD REASON FOR CONSULTATION: Establishing urologic care per family's demand. 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 Reportedly, his was concerned about a history of possible bladder or kidney cancer, although, the patient does not see a urologist on a regular basis. The demanded for the patient to be evaluated by a urologist. At the time of rounds, the was not present at bedside. The patient definitely has advanced dementia and hence records were mainly reviewed per his electronic medical chart. He states he is not sure why urology would be called. He does report that he wears Depends and denies having sensation to void at all times. He denies gross hematuria. He denies flank pain. I did review his records and he was in the emergency room on 05/29/2019, at which time he had a scrotal ultrasound which reported moderate size right hydrocele and 1 cm right epididymal cyst. He also had CT of abdomen and pelvis with IV contrast, which reported unremarkable kidneys, no evidence of hydronephrosis. He did have a trabeculated bladder with wall thickening likely due to chronic BPH. There was also concern for cystitis. At that time his urine culture grew Proteus mirabilis. PAST MEDICAL HISTORY: CVA, diabetes mellitus, hypertension, alcohol-related dementia, urinary tract infection, coronary artery disease. PAST SURGICAL HISTORY: None on record. ALLERGIES: No known drug allergies. HOME MEDICATIONS: Lisinopril, Protonix, Lipitor, aspirin, Namenda. SOCIAL HISTORY: Is unobtainable secondary to patient's dementia. REVIEW OF SYSTEM: Is unobtainable secondary to patient's dementia. PHYSICAL EXAMINATION: T 98.7 degrees, P 63, blood pressure 123/60.General: A pleasant appearing male. Cardiovascular: Regular rate and rhythm. HEENT: Normocephalic, atraumatic. Pulmonary: Bilateral breath sounds. Abdomen: Soft, protuberant, nontender to palpation. Bowel sounds are normal. : He is uncircumcised, redundant foreskin is phimotic. I am able to see the meatus and it appears to be patent. His penile shaft is without lesions or deformities. Testes are atrophic, but descended bilaterally without palpable masses. He was somewhat tender to palpation on the right side in the area of his epididymis but I could not definitely palpate the 1 cm cyst report on scrotal ultrasound. Perineum showed no evidence of rashes or lesions and structural integrity was intact. Rectal Examination: Digital rectal examination was deferred as patient had a full diaper. PERTINENT LABORATORY DATA: White cell count was 13,000, creatinine is 0.7. His urinalysis on 07/28/2019 showed moderate blood with 20 red blood cells. No evidence of bacteria. PERTINENT IMAGES: None at this time, but I personally reviewed the images from his visit to the emergency room in May 2019. ASSESSMENT: A 78-year-old male with alcohol-related dementia and urinary incontinence likely secondary to dementia, heavily trabeculated bladder with diverticula likely due to longstanding history of benign prostatic hyperplasia, microscopic hematuria, a report of right epididymal cyst and right hydrocele. His kidneys appear to be unremarkable on the CT scan and I reassured him. I have discussed with him that given his microscopic hematuria, he would benefit from workup at an outpatient setting with cystoscopy if he so desires. There is absolutely no reason to perform cystoscopy or any further evaluation at this time for him per best of my knowledge. PLAN: 1. If the patient's family desires after his discharge from the hospital and stabilized, they are welcome to contact our office and make an appointment with 1 of our urologists for microscopic hematuria follow up and see us in clinic at which point we would we can set him up for office cystoscopy. 2. Call with questions. cc: Jermaine Hernandez MD
[2019-07-30] MEDS: ROCEPHIN 1 GM in NS 50 ML IV SCH (21:49)
[2019-07-31] MEDS: HUMULIN R SUBQ SCH ×5 (01:24→20:40)
[2019-07-31] MEDS: PROTONIX PO SCH (05:59)
[2019-07-31 06:51] LABS: BASO# 0.05 X1000 (0.0-0.2); BASO% 0.4 % (0.0-0.8); EOS# 0.13 X1000 (0.0-0.7); EOS% 0.9 % (0.0-10.0); HEMATOCRIT 47.9 % (42.0-52.0); HEMOGLOBIN 14.4 g/dL (14.0-18.0); IMM GRAN# 0.06 X1000 (0.0-0.04); IMM GRAN% 0.4 % (0.0-0.5); LYMPH# 0.73 X1000 (1.2-3.4); LYMPH% 5.3 % (20.5-51.1); MCH 27.4 PG (27-31); MCHC 30.1 g/dL (33-37); MCV 91.2 FL (81-99); MONO# 0.89 X1000 (0.11-0.59); MONO% 6.4 % (1.7-9.3); MPV 10.1 FL (7.4-10.4); NEUT% 86.6 % (42.2-75.2); PLT 654 X1000 (130-400); RBC 5.25 XMIL (4.7-6.1); RDW 16.2 % (11.5-14.5); WBC 13.86 X1000 (4.8-10.8)
[2019-07-31 07:10] LABS: BANDS 2 % (0-1); EOS 2 % (1-10); LYMPHS 8 % (21-51); MONO 2 % (1-9); SEGS 86 % (42-75)
[2019-07-31 07:13] LABS: AGAP 13; ALBUMIN 3.3 g/dL (3.5-5.0); ALKALINE PHOSPHATASE 54 U/L (32-122); BUN 13 mg/dL (8-22); CALCIUM 8.3 mg/dL (8.8-10.2); CHLORIDE 101 mmol/L (98-107); COSMO 283; CREATININE 0.7 mg/dL (0.7-1.2); ESTIMATED GFR > 60; GLUCOSE 136 mg/dL (70-104); GOT 21 U/L (10-34); GPT 17 U/L (10-44); POTASSIUM 4.6 mmol/L (3.5-5.1); SODIUM 141 mmol/L (136-145); TCO2 27 mmol/L (25-35); TOTAL BILIRUBIN 0.65 mg/dL (0.20-1.00); TOTAL PROTEIN 6.7 g/dL (6.3-8.3)
--- NOTE | 2019-07-31 07:34 | Diag Imaging Result Doc PS360 ---
EXAM: CHEST-PORTABLE HISTORY: pneumonia TECHNIQUE: Single view COMPARISON: 07/29/2019 FINDINGS: The heart is mildly enlarged. Sternal wires are present. There is pulmonary edema. This is slightly more prominent. Basilar markings are slightly more pronounced. Small left pleural effusion. IMPRESSION: Mild interval worsening. Electronically signed by Ty Vasquez 07/31/2019 7:31 AM
[2019-07-31] MEDS: PRINIVIL PO SCH (08:04)
[2019-07-31] MEDS: NAMENDA PO SCH ×2 (08:04→20:42)
[2019-07-31] MEDS: ASPIRIN PO SCH (08:04)
[2019-07-31] MEDS: MUCINEX PO SCH ×2 (08:05→20:42)
[2019-07-31] MEDS: M.V.I.-12 10 ML, FOLIC ACID 1 MG, MAGNESIUM SULFATE 1 GM, THIAMINE 100 MG in NS 1,000 ML IV SCH (08:36)
[2019-07-31] MEDS: DUONEB (A & A) INH PRN ×5 (08:47→23:40)
[2019-07-31] MEDS: MUCOMYST 20% INH SCH ×2 (08:47→19:51)
--- NOTE | 2019-07-31 08:50 | EKG Report ---
Test Performed on : 07/28/2019 3:42:48 PM Test Reason : ED. No order in [place] Blood Pressure : / mmHG Vent. Rate : 067 BPM Atrial Rate : 067 BPM P-R Int : 134 ms QRS Dur : 132 ms QT Int : 506 ms P-R-T Axes : 087 003 122 degrees QTc Int : 534 ms Normal sinus rhythm. with sinus arrhythmia. Right bundle branch block Lateral infarct , age undetermined Inferior infarct (cited on or before 24-MAY-2007) Abnormal ECG When compared with ECG of 29-MAY-2019 11:59, (Unconfirmed) aberrant conduction. is no longer present T wave inversion less evident in Lateral leads QT has lengthened Unconfirmed Result
[2019-07-31] MEDS: TYLENOL PO PRN ×2 (11:53→21:22)
--- NOTE | 2019-07-31 18:34 | PROGRESS NOTE ---
DATE: 07/31/2019 SUBJECTIVE: Mr. Hamm feels better. He is awake and alert, breathing more comfortably. He feels pretty weak. PHYSICAL EXAMINATION: Vital Signs: On exam, he remains afebrile. Temperature 98.4 degrees, pulse 68, respirations 15, and blood pressure 119/52. HEENT: Pupils are equal and round. Lungs: Clear in all lung jones. Cardiovascular: Regular rhythm and rate without murmur or S3. Abdomen: Soft. Skin: Warm and dry. Blood sugar 108, 115, and 171. Chest x-ray mild interval worsening. Heart is mildly enlarged. Can appreciate sternal wires. Pulmonary edema. There is slightly more prominent basilar markings, slightly more prominent. Small left pleural effusion. ASSESSMENT AND PLAN: 1. I appreciate Dr. Hernandez's help. This is a 78-year-old with alcohol-related dementia, urinary incontinence, likely secondary to dementia, heavily trabeculated bladder with diverticula, likely due to a long-standing history of benign prostatic hyperplasia. Microscopic hematuria, and report of a right epididymal cyst and a right hydrocele. The patient appears to be unremarkable on the CT scan, and discussed with the patient given his microscopic hematuria, would benefit from a workup as an outpatient setting with a cystoscopy if he desires. 2. Pneumonia which is improving clinically. 3. Dementia. His cognitive status is better improved. He is less lethargic, more awake. would like to get him to rehab, and so we will pursue rehab. Looking over his orders, I do not see any significant changes. I did examine his scrotum. It is less red and irritated, and he has no complaints of pain down there. LABORATORY DATA: Labs from this morning, white count 06718, hematocrit 47, and platelet count 654,000. Electrolytes: Sodium 141, potassium 4.6, chloride 101, BUN 13, creatinine 0.7, blood sugar 139, 115, 136, 157, and 171. cc: Candelario Otoole MD
[2019-07-31] MEDS: LIPITOR PO SCH (20:42)
[2019-07-31] MEDS: ROCEPHIN 1 GM in NS 50 ML IV SCH (20:42)
[2019-08-01] MEDS: DUONEB (A & A) INH PRN ×3 (03:45→15:43)
[2019-08-01] MEDS: PROTONIX PO SCH (06:12)
[2019-08-01] MEDS: HUMULIN R SUBQ SCH ×4 (06:12→21:59)
[2019-08-01 07:04] LABS: AGAP 12; ALB/GLOB RATIO 0.8; ALBUMIN 2.9 g/dL (3.5-5.0); ALKALINE PHOSPHATASE 80 U/L (32-122); BUN 13 mg/dL (8-22); CALCIUM 8.7 mg/dL (8.8-10.2); CHLORIDE 102 mmol/L (98-107); COSMO 283; CREATININE 0.7 mg/dL (0.7-1.2); ESTIMATED GFR > 60; GLUCOSE 127 mg/dL (70-104); GOT 29 U/L (10-34); GPT 23 U/L (10-44); POTASSIUM 5.2 mmol/L (3.5-5.1); SODIUM 141 mmol/L (136-145); TCO2 27 mmol/L (25-35); TOTAL BILIRUBIN 0.58 mg/dL (0.20-1.00); TOTAL PROTEIN 6.5 g/dL (6.3-8.3)
[2019-08-01 07:12] LABS: BASO# 0.07 X1000 (0.0-0.2); BASO% 0.5 % (0.0-0.8); EOS# 0.15 X1000 (0.0-0.7); HEMATOCRIT 48.3 % (42.0-52.0); HEMOGLOBIN 14.6 g/dL (14.0-18.0); IMM GRAN# 0.06 X1000 (0.0-0.04); IMM GRAN% 0.4 % (0.0-0.5); LYMPH% 6.1 % (20.5-51.1); MCH 27.8 PG (27-31); MCHC 30.2 g/dL (33-37); MCV 91.8 FL (81-99); MONO# 1.22 X1000 (0.11-0.59); MONO% 8.3 % (1.7-9.3); MPV 10.2 FL (7.4-10.4); NEUT# 12.37 X1000 (1.4-6.5); NEUT% 83.7 % (42.2-75.2); PLT 694 X1000 (130-400); RBC 5.26 XMIL (4.7-6.1); RDW 16.5 % (11.5-14.5); WBC 14.77 X1000 (4.8-10.8)
[2019-08-01] MEDS ORDERED: LASIX IV ONE ×2 (08:00→15:49)
[2019-08-01] MEDS: MUCOMYST 20% INH SCH ×2 (08:07→19:48)
[2019-08-01] MEDS: ASPIRIN PO SCH (08:21)
[2019-08-01] MEDS: PRINIVIL PO SCH (08:21)
[2019-08-01] MEDS: NAMENDA PO SCH ×2 (08:21→22:00)
[2019-08-01] MEDS: MUCINEX PO SCH ×2 (08:21→22:00)
[2019-08-01] MEDS: M.V.I.-12 10 ML, FOLIC ACID 1 MG, MAGNESIUM SULFATE 1 GM, THIAMINE 100 MG in NS 1,000 ML IV SCH (10:12)
[2019-08-01] MEDS ORDERED: DUONEB (A & A) INH PRN (16:18)
--- NOTE | 2019-08-01 16:51 | PROGRESS NOTE ---
DATE: 08/01/2019 SUBJECTIVE: Mr. Hamm seems to be struggling more with breathing. He has prolonged expiratory phase. I am going to stop his MDI and fluids, and we will give him some Lasix. He has more confusion, delirium. His is concerned. Monitor called and he did have a 10 beat run of ventricular tachycardia. OBJECTIVE/PLAN: Looking at his lab, white count is 14,770, hematocrit is 48, platelet count is 694,000. Chemistry, sodium is 141, potassium 5.2, chloride 102, BUN 13, creatinine 0.7. Blood sugars 171, 138, 127, 114. Looking at his lab, we gave him Lasix 40 mg. He is on Lipitor 40 mg every night at bedtime, guaifenesin ER 1200 mg p.o. every 12 hours, aspirin 325 mg a day, lisinopril 2.5 mg a day, Namenda 5 mg b.i.d., Protonix 40 mg daily, ceftriaxone 1 gram every 24 hours. His chest x-ray from yesterday seemed to be worsening pulmonary edema, and so I am going to I am going to give him Lasix 40 mg every 12 hours and increase his albuterol treatments. Renal function looks good. Potassium was 5.2, come down with the Lasix. Repeat electrolytes and chest x-ray again in the morning. cc: Candelario Otoole MD
[2019-08-01] MEDS: VITAMIN B-1 PO SCH (16:55)
[2019-08-01] MEDS: MAXIPIME 2 GM/NS 2 GM/100 ML IVPB IV SCH (17:07)
[2019-08-01] MEDS: LIPITOR PO SCH (22:00)
[2019-08-02] MEDS: MAXIPIME 2 GM/NS 2 GM/100 ML IVPB IV SCH ×2 (04:15→16:58)
[2019-08-02] MEDS: LASIX IV SCH ×2 (04:15→16:58)
[2019-08-02] MEDS: PROTONIX PO SCH (06:00)
[2019-08-02] MEDS: HUMULIN R SUBQ SCH ×4 (06:00→21:52)
[2019-08-02 06:58] LABS: AGAP 9; ALB/GLOB RATIO 0.8; ALBUMIN 3.3 g/dL (3.5-5.0); ALKALINE PHOSPHATASE 72 U/L (32-122); BUN 14 mg/dL (8-22); CALCIUM 8.8 mg/dL (8.8-10.2); CHLORIDE 96 mmol/L (98-107); COSMO 280; CREATININE 0.8 mg/dL (0.7-1.2); ESTIMATED GFR > 60; GLUCOSE 140 mg/dL (70-104); GOT 30 U/L (10-34); GPT 27 U/L (10-44); POTASSIUM 4.4 mmol/L (3.5-5.1); SODIUM 139 mmol/L (136-145); TCO2 34 mmol/L (25-35); TOTAL BILIRUBIN 0.83 mg/dL (0.20-1.00); TOTAL PROTEIN 7.4 g/dL (6.3-8.3)
--- NOTE | 2019-08-02 07:03 | Diag Imaging Result Doc PS360 ---
EXAM: CHEST-PORTABLE 08/02/2019 HISTORY: pneumonia TECHNIQUE: AP portable at 0616 COMMENT: There is cardiomegaly. There is increased opacification of the left lower lobe compared to 07/31/2019 and the entire left hemidiaphragm is now obscured. IMPRESSION: Worsened atelectasis or pneumonia left lower lobe. Electronically signed by Guanaco Alcantar 08/02/2019 7:01 AM
[2019-08-02 07:19] LABS: BASO# 0.06 X1000 (0.0-0.2); BASO% 0.5 % (0.0-0.8); EOS# 0.11 X1000 (0.0-0.7); EOS% 0.9 % (0.0-10.0); HEMATOCRIT 49.3 % (42.0-52.0); HEMOGLOBIN 14.9 g/dL (14.0-18.0); IMM GRAN# 0.06 X1000 (0.0-0.04); IMM GRAN% 0.5 % (0.0-0.5); LYMPH# 0.67 X1000 (1.2-3.4); LYMPH% 5.3 % (20.5-51.1); MCH 27.7 PG (27-31); MCHC 30.2 g/dL (33-37); MCV 91.6 FL (81-99); MONO# 1.02 X1000 (0.11-0.59); MONO% 8.1 % (1.7-9.3); MPV 10.2 FL (7.4-10.4); NEUT# 10.66 X1000 (1.4-6.5); NEUT% 84.7 % (42.2-75.2); PLT 765 X1000 (130-400); RBC 5.38 XMIL (4.7-6.1); RDW 16.6 % (11.5-14.5); WBC 12.58 X1000 (4.8-10.8)
[2019-08-02] MEDS: MUCOMYST 20% INH SCH ×2 (08:00→19:55)
[2019-08-02] MEDS: DUONEB (A & A) INH PRN ×3 (08:00→19:55)
[2019-08-02 08:21] LABS: BANDS 2 % (0-1); EOS 2 % (1-10); LYMPHS 8 % (21-51); MONO 6 % (1-9); SEGS 82 % (42-75)
[2019-08-02 08:22] LABS: ANISOCYTOSIS 1+; HYPOCHROM 1+; LARGE PLATELETS 2+
[2019-08-02] MEDS: VITAMIN B-1 PO SCH (08:57)
[2019-08-02] MEDS: MUCINEX PO SCH ×2 (08:57→21:52)
[2019-08-02] MEDS: NAMENDA PO SCH ×2 (08:57→21:53)
[2019-08-02] MEDS: ASPIRIN PO SCH (08:57)
[2019-08-02] MEDS: PRINIVIL PO SCH (08:57)
--- NOTE | 2019-08-02 14:09 | PROGRESS NOTE ---
DATE: 08/02/2019 SUBJECTIVE: Mr. Hamm is much better. He is breathing better. His mind is more lucid, less confusion. They are trying to work with Physical Therapy and stand him. OBJECTIVE: Vital Signs: Temperature 98.1 degrees, pulse 78, respirations 17, blood pressure 118/64. Eyes: Pupils are equal and round. Lungs: Clear in all lung jones. Cardiovascular exam: Regular rhythm and rate without murmur or S3. : Urine output is 1400 mL. X-RAYS: Chest x-ray: Worsened atelectasis on the left lower lobe, but clinically seems to be doing better. ASSESSMENT AND PLAN: 1. He has some pulmonary venous hypertension. I stopped his fluid, gave him some Lasix. He is getting 40 mg intravenous every 12 hours at this time. 2. Treating him for pneumonia. His white count is coming down. He does appear to be doing better. 3. Diabetes mellitus type 2. Blood sugars 140, 120 and 141. He does have a place at [facility]. I think he will be ready tomorrow. I will try and get everything ready for him. I will put him on Levaquin oral for another 7 days, 750 mg once a day, and see if we can get him set up to go to rehabilitation. He has underlying alcohol dementia and he has had that for some time. He is very cooperative. I am going to continue giving him his thiamine. He has hypercholesterolemia and he has history of hypertension. Blood pressure looked good. He does have mild systolic dysfunction or congestive heart failure with mildly reduced ejection fraction, and appears to be well compensated. cc: Candelario Otoole MD
--- NOTE | 2019-08-02 14:14 | ECHO REPORT ---
ORDER DATE: 08/02/2019 INTERPRETING PHYSICIAN: Dr. Andres Forrest. ECHOCARDIOGRAPHIC MEASUREMENTS: 1. Interventricular septum: 1.9 cm. 2. Left ventricular posterior wall: 1.9 cm. 3. Left ventricular diastolic diameter: 3.9 cm. 4. Left atrium: 4.5 cm. 5. Aorta: 3.4 cm. 6. Left ventricular systolic diameter: 3.1 cm. SUMMARY OF THE 2-DIMENSIONAL IMAGIN. Aortic valve leaflets were sclerosed, trileaflet. 2. Pulmonic valve was normal. 3. Mitral valve was normal. There is mitral annular calcification. 4. Tricuspid valve was normal. There is moderate tricuspid regurgitation. Peak velocity across the tricuspid valve was 3.4 m/sec. 5. Pulmonary artery systolic pressure of 58 mmHg. 6. There is mild mitral regurgitation. 7. There is left atrial enlargement. 8. There is diastolic dysfunction. 9. Peak velocity across the aortic valve less than 2 m/sec. There is no aortic stenosis or regurgitation. 10. Normal left ventricular cavity size. 11. Endocardium not well visualized in all views. 12. There is severe concentric left ventricular hypertrophy. Estimated ejection fraction of 55%. 13. There is no pericardial effusion. cc: MD Candelario Antoine MD
[2019-08-02] MEDS: LIPITOR PO SCH (21:53)
[2019-08-03] MEDS: MAXIPIME 2 GM/NS 2 GM/100 ML IVPB IV SCH ×2 (04:11→17:15)
[2019-08-03] MEDS: LASIX IV SCH ×2 (04:11→17:16)
[2019-08-03] MEDS: PROTONIX PO SCH ×2 (05:40→06:02)
[2019-08-03] MEDS: HUMULIN R SUBQ SCH ×3 (06:07→16:52)
[2019-08-03 06:20] LABS: BASO# 0.09 X1000 (0.0-0.2); BASO% 0.9 % (0.0-0.8); EOS# 0.27 X1000 (0.0-0.7); EOS% 2.7 % (0.0-10.0); HEMATOCRIT 48.2 % (42.0-52.0); HEMOGLOBIN 14.7 g/dL (14.0-18.0); IMM GRAN# 0.05 X1000 (0.0-0.04); IMM GRAN% 0.5 % (0.0-0.5); LYMPH# 0.95 X1000 (1.2-3.4); LYMPH% 9.6 % (20.5-51.1); MCH 27.7 PG (27-31); MCHC 30.5 g/dL (33-37); MCV 90.8 FL (81-99); MONO# 0.82 X1000 (0.11-0.59); MONO% 8.3 % (1.7-9.3); MPV 10.3 FL (7.4-10.4); NEUT# 7.74 X1000 (1.4-6.5); PLT 791 X1000 (130-400); RBC 5.31 XMIL (4.7-6.1); RDW 16.4 % (11.5-14.5); WBC 9.92 X1000 (4.8-10.8)
[2019-08-03 06:40] LABS: AGAP 6; ALB/GLOB RATIO 0.8; ALBUMIN 3.3 g/dL (3.5-5.0); ALKALINE PHOSPHATASE 72 U/L (32-122); BUN 19 mg/dL (8-22); CALCIUM 8.8 mg/dL (8.8-10.2); CHLORIDE 98 mmol/L (98-107); COSMO 291; CREATININE 0.8 mg/dL (0.7-1.2); ESTIMATED GFR > 60; GLUCOSE 133 mg/dL (70-104); GOT 52 U/L (10-34); GPT 43 U/L (10-44); POTASSIUM 4.2 mmol/L (3.5-5.1); SODIUM 144 mmol/L (136-145); TCO2 40 mmol/L (25-35); TOTAL BILIRUBIN 0.55 mg/dL (0.20-1.00); TOTAL PROTEIN 7.3 g/dL (6.3-8.3)
[2019-08-03] MEDS: ASPIRIN PO SCH (08:41)
[2019-08-03] MEDS: VITAMIN B-1 PO SCH (08:41)
[2019-08-03] MEDS: MUCINEX PO SCH (08:41)
[2019-08-03] MEDS: PRINIVIL PO SCH (08:41)
[2019-08-03] MEDS: NAMENDA PO SCH (08:41)
--- NOTE | 2019-08-03 13:13 | DISCHARGE SUMMARY ---
ADMISSION DATE: 07/28/2019 DISCHARGE DATE: 08/03/2019 HISTORY: This is a patient of Dr. Painter, a 78-year-old, takes care of him at home. He has alcohol-related dementia. He wears Depends. On the morning of 07/28/2019 at 5:30 in the morning, he was sitting up in the den and trying to get him up. He was just very weak, lethargic, and was not acting right. It seemed like his mental status had changed since she brought him to the emergency room. Denied fever or chills, chest pain or palpitations. PAST MEDICAL HISTORY: He has had a couple of CVAs, severe right-sided deficit. He has diabetes mellitus type 2, hypertension, history of alcohol-related dementia. He was able to walk with assistance, but at the present time not able to walk, and she had to call an ambulance to bring him here to the hospital. ADMISSION DIAGNOSIS: He appeared to have pneumonia, left lower lobe pneumonia. He was treated with ceftriaxone 2 g IV q. q.24 hours. Also, it appeared that he had some pulmonary venous hypertension. We did give him some fluid and some thiamine, and we did diurese him with some IV Lasix. Clinically, he improved. He had some erythema and discomfort in his penis and scrotal area, but did not see any lesions or any sign of torsion. She gave reference that he has a history of either bladder cancer or kidney cancer years ago, and asked that we get urology to evaluate. He did not see any reason to pursue cystoscopy or any thing invasive at this time, but was happy to follow him up as an outpatient. He showed improvement. He was able to eat, and began physical therapy. He was very weak, but was very cooperative and the would like to get him into rehab. His pneumonia was treated. We did an echocardiogram with Doppler on 08/02/2019. Pulmonary pressure was 58 mmHg. Mild mitral regurgitation. Left atrial enlargement. There is diastolic dysfunction. He has normal left ventricular size. His estimated ejection fraction was around 55% so plan to discharge on 08/03/2019. DISCHARGE MEDICATIONS: 1. Aspirin 325 mg a day. 2. Lipitor 40 mg a day. 3. Lasix 40 mg p.o. every morning. 4. Prinivil 2.5 mg a day. 5. Namenda 5 mg b.i.d. 6. Protonix 40 mg daily. 7. We will give him thiamine 100 mg p.o. daily as well. cc: Candelario Otoole MD
[2019-08-03] MEDS: DUONEB (A & A) INH PRN ×2 (13:22→16:06)
[2019-08-03] MEDS: MUCOMYST 20% INH SCH (13:23)
[2019-08-03 16:37] VITALS: BP 107/64
== END 2019-08-03 19:19 | DRG 194 ==
LOC: SUPCPDRO → ED 14:58 → EDIPHOLD 20:57 → SUATTDRO 20:57 → 2N 07-29 01:53 → 3N 08-03 11:49
PROVIDERS: ATTEND Emergency Medicine